=== PATIENT | male | born 1950 | race Caucasian/White ===

== ENCOUNTER 2021-07-04 10:19 | Inpatient (IN) | payer MEDICARE, MEDICAID ==
[~2021-07-04] VITALS: Ht 182.9 cm; Wt 50.3 kg
--- NOTE | 2021-07-04 10:25 | NUR ---
AMBROSIO EUGENE FROM [facility] FOR POOR ORAL INTAKE. THE PATIENT IS ALERT AND ORIENTED TO SELF. IN ROOM AIR AND DENIES SOB. RESPIRATION REGULAR AND UNLABORED. IN NO APPARENT DISTRESS. WILL CONTINUE TO MONITOR THE PATIENT.
[2021-07-04 11:00] LABS: BASOPHILS % (AUTO) 0.7 % (0.0-2.0); EOSINOPHILS % (AUTO) 0.9 % (0.0-6.0); HEMATOCRIT 42 % (39-51); HEMOGLOBIN 13.7 g/dL (13.5-17.5); LYMPHOCYTES # (AUTO) 1.4 K/uL (0.8-4.8); LYMPHOCYTES % (AUTO) 24.5 % (20.0-44.0); MEAN CORPUSCULAR HGB CONC 33 g/dl (31.0-36.0); MEAN CORPUSCULAR VOLUME 93 fL (80-96); MONOCYTES # (AUTO) 0.3 K/uL (0.1-1.30); MONOCYTES % (AUTO) 5.5 % (2.0-12.0); NEUTROPHILS # (AUTO) 3.8 K/uL (1.8-8.9); NEUTROPHILS % (AUTO) 68.4 % (43.0-81.0); PLATELET COUNT (AUTO) 210 K/uL (150-450); RED BLOOD CELL COUNT(AUTO) 4.46 MIL/uL (4.5-6.0); WHITE BLOOD COUNT (AUTO) 5.5 K/uL (4.3-11.0)
[2021-07-04 11:07] LABS: CALCIUM, SERUM 9.5 mg/dL (8.5-10.1); CARBON DIOXIDE 29 mmol/L (21-32); CHLORIDE 107 mmol/L (98-107); GLUCOSE 154 mg/dL (74-106); POTASSIUM 3.6 mmol/L (3.5-5.1); SODIUM SERUM 148 mmol/L (136-145); UREA NITROGEN, BLOOD 30 mg/dL (7-18)
[2021-07-04 11:11] LABS: ALANINE AMINOTRANSFERASE 13 U/L (12-78); ALBUMIN 3.6 g/dL (3.4-5.0); ALKALINE PHOSPHATASE 60 U/L (46-116); ASPARTATE AMINOTRANSFERASE 10 U/L (15-37); BILIRUBIN,DIRECT 0.1 mg/dL (0.0-0.2); BILIRUBIN,TOTAL 0.3 mg/dL (0.2-1.0); TOTAL PROTEIN, SERUM 7.1 g/dL (6.4-8.2)
[2021-07-04] MEDS ORDERED: IV NS 0.9% 1,000 ML BAG IV ONE ×2 (11:30→12:30)
--- NOTE | 2021-07-04 11:40 | NUR ---
MOVE SHEET SUBMITTED.
[2021-07-04 11:43] LABS: BILIRUBIN,URINE Negative (NEGATIVE); COLOR,URINE YELLOW (YELLOW); LEUKOCYTE ESTERASE ,URINE Moderate (NEGATIVE); NITRITE, URINE Positive (NEGATIVE); PH,URINE 6.5 (5.0-8.0); PROTEIN,URINE 30 mg/dl (NEGATIVE); UGLUCOSE Negative (NEGATIVE); UROBILINOGEN,URINE 0.2 EU/dL (0.2)
[2021-07-04 11:44] LABS: BACTERIA,URINE Few /HPF (None Seen); SQUAMOUS EPITHELIAL CELL,UR None Seen /HPF (None Seen)
[2021-07-04] MEDS ORDERED: DONE10TA11 GT (11:47)
[2021-07-04] MEDS ORDERED: VALP250S4 GT (11:47)
[2021-07-04] MEDS ORDERED: ASCO500C17 PO (11:47)
[2021-07-04] MEDS ORDERED: POLY17PO4 PO (11:47)
[2021-07-04] MEDS ORDERED: DEXT15DR6 OP (11:47)
[2021-07-04] MEDS ORDERED: MELA5TAB PO (11:47)
[2021-07-04] MEDS ORDERED: SERT50TA PO (11:47)
[2021-07-04] MEDS ORDERED: RISP1TAB97 PO (11:47)
--- NOTE | 2021-07-04 12:03 | NUR ---
COVID SWAB DONE AND SENT TO THE LAB
[2021-07-04] MEDS ORDERED: CEFTRIAXONE 1GM BAG (ER ONLY) 1 GM/50 ML PIGGYBACK IV ONE (12:30)
[2021-07-04] MEDS ORDERED: IV NS 0.9% 1,000 ML IV PRN (12:30)
[2021-07-04] MEDS ORDERED: Z GUARD REMEDY 2 OZ OINT TP PRN (12:30)
[2021-07-04] MEDS ORDERED: HOME MED MISCELLANEOUS XX SCH (12:30)
[2021-07-04] MEDS ORDERED: ONDANSETRON HCL/PF 4 MG/2 ML VIAL IVP PRN (12:30)
[2021-07-04] MEDS ORDERED: CEFTRIAXONE 1GM BAG (ER ONLY) 50 ML IV ONE (13:37)
--- NOTE | 2021-07-04 15:23 | NUR ---
PT ACCEPTED TO 119-1
--- NOTE | 2021-07-04 15:53 | NUR ---
REPORT GIVEN TO NURSE MORAIMA
--- NOTE | 2021-07-04 16:14 | NUR ---
THE PATIENT IS TRANSFERED TO [facility] IN STABLE CONDITION AND PER POLICY.
[2021-07-04] MEDS: ENSURE ENLIVE CHOC 237 ML CAN PO SCH (17:00)
[2021-07-04] MEDS: risperiDONE 1 MG TABLET PO SCH (17:29)
[2021-07-04] MEDS: ENOXAPARIN SODIUM 40 MG/0.4 ML DISP.SYRIN SQ SCH (17:31)
[2021-07-04 18:38] VITALS: BP 132/76
--- NOTE | 2021-07-04 19:30 | NUR ---
RN NOTE RECEIVED PATIENT IN BED. A/OX1. PATIENT IS CONFUSED. TOLERATING ROOM AIR. RESPIRATIONS ARE EVEN AND UNLABORED. NO S/S SOB NOTED. NO C/O PAIN AT THIS TIME. IN NO APPARENT DISTRESS. IV IN LAC#20 PATENT AND SALINE LOCKED AT THIS TIME TIME. PATIENT DOESNT WANT TO BE CONNECTED, GETTING UPSET THAT I WANT TO CONNECT HIM TO IVF. BED IS LOW AND LOCKED, HOB ELEVATED IN SEMI FOWLERS, SIDE RAILS UP X3, CALL LIGHT WITHIN REACH. WILL CONTINUE TO MONITOR THROUGHOUT SHIFT.
[2021-07-04 20:00] VITALS: BP 134/70
--- NOTE | 2021-07-04 20:00 | NUR ---
RN NOTE PROFESSOR OF HISTORY INFORMED ME THAT PATIENT REFUSED TO TAKE ALLOW HER TO CHECK O2 SATURATION DURING VITALS, I ALSO TRIED TO OBTAIN THE O2 SATURATION BUT PATIENT REFUSED.
[2021-07-04] MEDS: VALPROIC ACID 250 MG/5 ML UDC PO SCH ×3 (21:00→22:49)
[2021-07-04] MEDS: POLYVINYL ALCOHOL 15 ML BOTTLE EACHEYE SCH ×2 (21:00→21:46)
[2021-07-04] MEDS: DONEPEZIL 5 MG TABLET PO SCH ×3 (21:46→22:49)
--- NOTE | 2021-07-04 22:10 | NUR ---
RN NOTE PATIENT REFUSED TO TAKE MEDICATIONS DESPITE INFORMED HIM OF BENEFITS. AFTER ANOTHER ATTEMPT TO TRY TO TAKE MEDICATIONS HE DID TAKE SOME, HE REFUSED IVF TO BE ADMINISTERED AND ARTIFICIAL TEARS.
[2021-07-05 04:00] VITALS: BP 123/66
--- NOTE | 2021-07-05 04:00 | NUR ---
RN NOTE PATIENT ONCE AGAIN REFUSED TO ALLOW O2 SAT TO BE CHECKED. PATIENT IS STABLE ON ROOM AIR NO S/S SOB NOTED. NO RESPIRATORY DISTRESS.
[2021-07-05] MEDS: POLYVINYL ALCOHOL 15 ML BOTTLE EACHEYE SCH ×3 (05:00→21:00)
--- NOTE | 2021-07-05 05:28 | NUR ---
RN NOTE PATIENT REFUSED MEDICATION OF ARTIFICIAL TEARS AGAIN. INFORMED ON BENEFITS, CONTINUES TO REFUSE.
--- NOTE | 2021-07-05 06:23 | NUR ---
RN NOTE PER VP SOFTWARE ENGINEERING PATIENT REFUSED AM LABS AND WAS BECOMING COMBATIVE.
--- NOTE | 2021-07-05 06:52 | NUR ---
RN NOTE PATIENT RESTING IN BED. A/OX1. PATIENT IS VERY CONFUSED. TRIED COMING OUT OF HIS ROOM SEVERAL TIMES THROUGHOUT THE NIGHT. REMAINS TOLERATING ROOM AIR. DID NOT ALLOW US TO CHECK O2 SAT THROUGHOUT NIGHT BUT THERE WAS NO SIGNS OF RESP DISTRESS. PATIENT IS VERY NONCOMPLIANT WITH CARE AND THEN BECOMES COMBATIVE. IV IN LAC#20 , NO IVF RUNNING BECAUSE PATIENT REFUSED. BED IS LOW AND LOCKED, HOB ELEVATED IN SEMI FOWLERS, SIDE RAILS UP X3, CALL LIGHT WITHIN REACH. WILL ENDORSE TO ONCOMING SHIFT.
[2021-07-05 08:00] VITALS: BP 121/59
[2021-07-05] MEDS: ENSURE ENLIVE CHOC 237 ML CAN PO SCH ×2 (08:06→17:00)
[2021-07-05] MEDS: VALPROIC ACID 250 MG/5 ML UDC PO SCH ×2 (09:00→21:00)
[2021-07-05] MEDS: SERTRALINE HCL 50 MG TABLET PO SCH (09:00)
[2021-07-05] MEDS: risperiDONE 1 MG TABLET PO SCH ×2 (09:00→17:00)
[2021-07-05] MEDS: ASCORBIC ACID 500 MG TABLET PO SCH (09:00)
[2021-07-05] MEDS: PANTOPRAZOLE 40 MG VIAL IV SCH (10:10)
[2021-07-05] MEDS: ENOXAPARIN SODIUM 40 MG/0.4 ML DISP.SYRIN SQ SCH (10:12)
[2021-07-05] MEDS: CEFTRIAXONE 1 G in IV D5W 50 ML IV SCH ×2 (11:48→12:00)
[2021-07-05] MEDS: IV D5 LR 500 ML IV PRN ×2 (11:53→12:11)
[2021-07-05 12:00] VITALS: BP 103/63
[2021-07-05 16:00] VITALS: BP 104/56
--- NOTE | 2021-07-05 18:25 | NUR ---
Patient refused labwork at this time. Edgar Norman RN
--- NOTE | 2021-07-05 19:25 | NUR ---
MS/RN OPENING NOTE RECEIVED PATIENT RESTING IN BED. AWAKE, ALERT AND ORIENTED X 3. ABLE TO MAKE NEEDS KNOWN. DENIES PAIN AT THIS TIME. CONTINUES ON ROOM AIR WITH NO S/SX OF RESPIRATORY DISTRESS NOTED. IV ACCESS TO RIGHT AC #20G INTACT AND PATENT. PATIENT REFUSING IVF AT THIS TIME. PATIENT IS AMBULATORY WITH STEADY GAIT. CALL LIGHT WITHIN REACH. ASPIRATION, FALL AND SAFETY PRECAUTIONS MAINTAINED. WILL CONTINUE TO MONITOR.
[2021-07-05] MEDS: DONEPEZIL 5 MG TABLET PO SCH (21:04)
--- NOTE | 2021-07-05 21:04 | NUR ---
MS/RN NOTE PATIENT REFUSING ALL HS MEDICATIONS AT THIS TIME. DISCUSSED RISKS/BENEFITS OF REFUSING MEDICATION WITH PATIENT CONTINUING TO REFUSE X 3. WILL CONTINUE TO MONITOR.
[2021-07-06] MEDS: POLYVINYL ALCOHOL 15 ML BOTTLE EACHEYE SCH ×3 (05:00→21:00)
--- NOTE | 2021-07-06 06:00 | NUR ---
MS/RN NOTE PATIENT COMBATIVE, ATTEMPTING TO HIT STAFF. REFUSING CARE, PULLED OUT IV LINE. IV PLACED TO RIGHT AC#20G. NEW ORDER FROM DIRECTOR PARK MD ALARCON FOR BILATERAL SOFT WRIST RESTRAINTS AND HALDOL 5MG IM X 1. ORDER INPUTTED AND CARRIED OUT.
--- NOTE | 2021-07-06 06:20 | NUR ---
MS/RN CLOSING NOTE PATIENT CURRENTLY RESTING IN BED. ALERT AND ORIENTED X 1. NO PAIN AT THIS TIME. IV ACCESS TO RIGHT AC #20G INTACT AND PATENT. CONTINUES ON IVF. CONTINUES ON IV ABX. BILATERAL WRIST RESTRAINTS IN PLACE WITH GOOD CIRCULATION. CALL LIGHT WITHIN REACH. SAFETY CHECKS MADE. WILL ENDORSE PLAN OF CARE TO ONCOMING SHIFT.
[2021-07-06] MEDS ORDERED: HALOPERIDOL LACTATE INJ 5 MG/ML VIAL IM ONE (06:45)
--- NOTE | 2021-07-06 07:45 | NUR ---
RN OPENING NOTES RECEIVED PATIENT AWAKE IN BED. ALERT AND ORIENTED X1. NO SIGNS OR SYMPTOMS OF DISTRESS NOTED. NO SOB. RAC#20G PATENT AND INTACT. PATIENT IS REFUSED IV FLUIDS, MD AWARE. PATIENT WITH SOFT WRIST RESTRAINTS. SAFETY MEASURES IN PLACE WITH BED AT LOW POSITION, SIDE RAILS UP X2. CALL LIGHT IS WITHIN REACH. WILL CONTINUE TO MONITOR PATIENT THROUGHOUT SHIFT.
[2021-07-06 08:00] VITALS: BP 98/60
[2021-07-06] MEDS: ENSURE ENLIVE CHOC 237 ML CAN PO SCH ×2 (08:00→16:03)
[2021-07-06] MEDS: VALPROIC ACID 250 MG/5 ML UDC PO SCH ×3 (09:00→21:40)
[2021-07-06] MEDS: risperiDONE 1 MG TABLET PO SCH ×2 (09:00→09:27)
[2021-07-06] MEDS: ASCORBIC ACID 500 MG TABLET PO SCH (09:26)
[2021-07-06] MEDS: PANTOPRAZOLE 40 MG VIAL IV SCH (09:26)
[2021-07-06] MEDS: ENOXAPARIN SODIUM 40 MG/0.4 ML DISP.SYRIN SQ SCH (09:27)
[2021-07-06] MEDS: SERTRALINE HCL 50 MG TABLET PO SCH (09:27)
[2021-07-06] MEDS: CEFTRIAXONE 1 G in IV D5W 50 ML IV SCH (11:27)
[2021-07-06] MEDS: OLANZAPINE 2.5 MG TABLET PO SCH ×2 (14:28→21:40)
[2021-07-06] MEDS: MEROPENEM 1 G in IV NS 0.9% 100 ML IV SCH ×2 (15:44→23:35)
--- NOTE | 2021-07-06 17:00 | NUR ---
MS RN NOTES PATIENT CONSUMED ALMOST 100% OF LUNCH AND DINNER.
[2021-07-06 17:03] VITALS: BP 134/75
--- NOTE | 2021-07-06 18:25 | NUR ---
RN NOTES AFTER REMOVAL OF SOFT RESTRAINTS DURING MEALS, PATIENT WALKED TO RESTROOM SEVERAL TIMES AFTER INSTRUCTED NOT TO DO SO. PATIENT BECAME COMBATIVE AND AGGRESSIVE. SOFT RESTRAINTS WERE REAPPLIED, CHARGE NURSE RIZWAN MADE AWARE AND PATIENT WAS MOVED TO ROOM 113-1.
--- NOTE | 2021-07-06 18:29 | NUR ---
RN CLOSING NOTES PATIENT IS BED AWAKE IN BED, RESTING COMFORTABLY. ALERT AND ORIENTED X1. NO SIGNS OR SYMPTOMS OF DISTRESS NOTED. NO SOB. RAC#20G PATENT AND INTACT RUNNING D5 LR @75MLS/HR. IV ABX ADMINISTERED. SAFETY MEASURES IN PLACE WITH BED AT LOW POSITION, SIDE RAILS UP X2. CALL LIGHT IS WITHIN REACH. WILL ENDORSE CONTINUITY OF CARE TO ONCOMING SHIFT.
--- NOTE | 2021-07-06 19:30 | NUR ---
RN NOTE PATIENT RESTING IN BED. A/OX1-2. TOLERATING ROOM AIR. NO RESP DISTRESS. NO PAIN. NO DISTRESS. IV ACCESS IN RFA RUNNING D5LR@75. BILATERAL SOFT WRIST RESTRAINTS BED IS LOW AND LOCKED, HOB ELEVATED IN SEMI FOWLERS, SIDE RAILS UP X2, CALL LIGHT WITHIN REACH. ENDORSED TO NEXT SHIFT.
[2021-07-06 20:00] VITALS: BP 99/69
[2021-07-06 21:26] LABS: BASOPHILS # (AUTO) 0.1 K/uL (0.0-0.2); BASOPHILS % (AUTO) 0.9 % (0.0-2.0); EOSINOPHILS % (AUTO) 0.6 % (0.0-6.0); HEMATOCRIT 37 % (39-51); HEMOGLOBIN 12.4 g/dL (13.5-17.5); LYMPHOCYTES % (AUTO) 18.6 % (20.0-44.0); MEAN CORPUSCULAR HGB CONC 34 g/dl (31.0-36.0); MEAN CORPUSCULAR VOLUME 92 fL (80-96); MONOCYTES # (AUTO) 0.6 K/uL (0.1-1.30); NEUTROPHILS # (AUTO) 3.9 K/uL (1.8-8.9); NEUTROPHILS % (AUTO) 69.9 % (43.0-81.0); PLATELET COUNT (AUTO) 180 K/uL (150-450); RED BLOOD CELL COUNT(AUTO) 4.02 MIL/uL (4.5-6.0); WHITE BLOOD COUNT (AUTO) 5.6 K/uL (4.3-11.0)
[2021-07-06 21:38] LABS: POTASSIUM 4.4 mmol/L (3.5-5.1)
[2021-07-06] MEDS: MIRTAZAPINE 15 MG TABLET PO SCH (21:40)
[2021-07-06] MEDS: DONEPEZIL 5 MG TABLET PO SCH (21:40)
[2021-07-06] MEDS: IV D5 LR 500 ML IV PRN (21:43)
[2021-07-07] VITALS: BP 123/65
[2021-07-07 04:00] VITALS: BP 112/60
[2021-07-07] MEDS: POLYVINYL ALCOHOL 15 ML BOTTLE EACHEYE SCH ×3 (05:00→21:00)
[2021-07-07] MEDS: PANTOPRAZOLE 40 MG TABLET.DR PO SCH (07:30)
[2021-07-07 07:45] LABS: BASOPHILS % (AUTO) 0.3 % (0.0-2.0); EOSINOPHILS % (AUTO) 1.4 % (0.0-6.0); HEMATOCRIT 38 % (39-51); LYMPHOCYTES # (AUTO) 1.3 K/uL (0.8-4.8); LYMPHOCYTES % (AUTO) 27.3 % (20.0-44.0); MEAN CORPUSCULAR HGB CONC 34 g/dl (31.0-36.0); MEAN CORPUSCULAR VOLUME 92 fL (80-96); MONOCYTES # (AUTO) 0.5 K/uL (0.1-1.30); MONOCYTES % (AUTO) 9.3 % (2.0-12.0); NEUTROPHILS % (AUTO) 61.7 % (43.0-81.0); PLATELET COUNT (AUTO) 167 K/uL (150-450); RED BLOOD CELL COUNT(AUTO) 4.17 MIL/uL (4.5-6.0); WHITE BLOOD COUNT (AUTO) 4.9 K/uL (4.3-11.0)
[2021-07-07] MEDS: ENSURE ENLIVE CHOC 237 ML CAN PO SCH ×2 (08:00→16:08)
[2021-07-07 08:31] LABS: CALCIUM, SERUM 9.1 mg/dL (8.5-10.1); POTASSIUM 3.6 mmol/L (3.5-5.1)
[2021-07-07] MEDS: OLANZAPINE 2.5 MG TABLET PO SCH ×2 (09:00→21:00)
[2021-07-07] MEDS: ASCORBIC ACID 500 MG TABLET PO SCH (09:00)
[2021-07-07] MEDS: VALPROIC ACID 250 MG/5 ML UDC PO SCH ×2 (09:00→21:00)
[2021-07-07] MEDS: ENOXAPARIN SODIUM 40 MG/0.4 ML DISP.SYRIN SQ SCH (09:12)
[2021-07-07] MEDS: MEROPENEM 1 G in IV NS 0.9% 100 ML IV SCH ×3 (09:13→23:54)
[2021-07-07] MEDS: IV D5 LR 500 ML IV PRN (15:18)
--- NOTE | 2021-07-07 18:30 | NUR ---
MS RN CLOSING NOTES PATIENT CURRENTLY LYING IN BED, AWAKE. A/O X1. REPEATEDLY YELLS "SAVE MY LIFE!". STABLE ON ROOM AIR - NO SOB NOTED. NO DISTRESS/DISCOMFORT NOTED. ON BILATERAL SOFT WRIST RESTRAINTS - PATIENT REPEATEDLY TRIES TO PULL OUT IV LINE. IV ACCESS TO RIGHT AC#20G - PATENT AND INTACT - RUNNING D5 LR @75ML/HR. SAFETY MEASURES IMPLEMENTED. CALL LIGHT WITHIN REACH. WILL ENDORSE TO NURSE CHEMICAL DEPENDENCY NURSE FOR CUBA.
--- NOTE | 2021-07-07 19:45 | NUR ---
RN NOTE PATIENT ALERT AND ORIENTED X1-2. ON ROOM AIR, NO SHORTNESS OF BREATH NOTED. RESPIRATIONS EVEN AND UNLABORED. WITH BILATERAL SOFT WRIST RESTRAINTS, SKIN AND CIRCULATION CHECKED. NO SIGNS OF SKIN BREAKDOWN. PATIENT IS CURRENTLY NPO FOR POSSIBLE PEG PLACEMENT IN AM. IV ACCESS ON RIGHT AC # 20 WITH D5LR @ 75ML/HR, NO SIGNS OF INFILTRATION. BED LOCKED AND IN LOWEST POSITION. CALL LIGHT WITHIN REACH. ALL NEEDS ANTICIPATED.
[2021-07-07] MEDS: DONEPEZIL 5 MG TABLET PO SCH (21:00)
[2021-07-07] MEDS: MIRTAZAPINE 15 MG TABLET PO SCH (21:00)
[2021-07-08] MEDS: POLYVINYL ALCOHOL 15 ML BOTTLE EACHEYE SCH ×3 (04:51→21:00)
[2021-07-08] MEDS: IV D5 LR 500 ML IV PRN (06:23)
--- NOTE | 2021-07-08 06:51 | NUR ---
RN NOTE PATIENT ALERT AND ORIENTED X1-2. ON ROOM AIR O2 SAT 95% WITH BILATERAL SOFT WRIST RESTRAINTS, SKIN AND CIRCULATION CHECKED. NO SIGNS OF SKIN BREAKDOWN. PATIENT IS CURRENTLY NPO FOR POSSIBLE PEG PLACEMENT TODAY. IV ACCESS ON RIGHT AC # 20 WITH D5LR @ 75ML/HR, NO SIGNS OF INFILTRATION. BED LOCKED AND IN LOWEST POSITION. CALL LIGHT WITHIN REACH. WILL ENDORSE TO AM SHIFT.
[2021-07-08] MEDS: PANTOPRAZOLE 40 MG TABLET.DR PO SCH (07:30)
[2021-07-08] MEDS: ENSURE ENLIVE CHOC 237 ML CAN PO SCH ×2 (08:00→16:36)
--- NOTE | 2021-07-08 08:08 | NUR ---
MS RN OPENING NOTE PATIENT IS IN BED RESTING, PATIENT IS IN NO ACUTE DISTRESS. PATIENT IS ON ROOM AIR TOLERATING WELL. SAFETY PRECAUTIONS ARE ON, BED IS LOCKED IN THE LOWEST POSITION WITH SIDE RAILS UP, CALL LIGHT WITHIN REACH, WILL CONTINUE TO MONITOR CLOSELY.
--- NOTE | 2021-07-08 08:28 | NUR ---
MS RN NOTE PATIENTS OXYGEN LEVEL WAS 86%, PLACED PATIENT ON THE OXYGEN ON NC ON 4L, PATIENT SATURATING WENT UP YO 100%, PATIENT HR IS 45, PLACED PATIENT ON THE TELE MONITOR TO CONTINUE TO MONITOR CLOSELY.
[2021-07-08] MEDS: VALPROIC ACID 250 MG/5 ML UDC PO SCH ×2 (09:00→21:09)
[2021-07-08] MEDS: OLANZAPINE 2.5 MG TABLET PO SCH ×2 (09:00→21:09)
[2021-07-08] MEDS: ENOXAPARIN SODIUM 40 MG/0.4 ML DISP.SYRIN SQ SCH (09:00)
[2021-07-08] MEDS: ASCORBIC ACID 500 MG TABLET PO SCH (09:00)
[2021-07-08] MEDS: MEROPENEM 1 G in IV NS 0.9% 100 ML IV SCH ×2 (09:51→16:35)
--- NOTE | 2021-07-08 09:53 | NUR ---
MS RN NOTE PATIENT IS NOT COMPLIANT WITH MEDICATIONS, REFUSED ALL OF THEM, DISCUSSED RISK AND BENEFITS, PATIENT KEPT ON REFUSING.
--- NOTE | 2021-07-08 18:54 | NUR ---
MS RN CLOSING NOTE PATIENT IS IN BED RESTING, PATIENT IS IN NO ACUTE DISTRESS. PATIENT IS ON ROOM AIR TOLERATING WELL. PATIENT HAS G-TUBE PLACED. SAFETY PRECAUTIONS ARE ON, BED IS LOCKED IN THE LOWEST POSITION WITH SIDE RAILS UP, CALL LIGHT WITHIN REACH, ENDORSE PATIENT TO TEMPLE MARKER NURSE FOR CUBA.
--- NOTE | 2021-07-08 19:35 | NUR ---
RN NOTE PT RECEIVED IN BED. PT IS ON 4L OF O2 VIA NC SHOWING NO SIGNS OF RESP DISTRESS. A&OX1. PT IS ON TELE MONITOR WITH HR IN LOW 40S. BILATERAL WRIST RESTRAINTS NOTED. WILL CONTINUE TO ASSESS. PT HAS RIGHT AC #20, FLUSHED PATENT, AND INTACT WITH NO INFILTRATION. ALL SAFETY MEASURES IMPLEMENTED. CALL LIGHT WITHIN REACH. BED ALARM ON. CALL LIGHT WITHIN REACH. WILL CONTINUE TO MONITOR THROUGHOUT THE SHIFT.
[2021-07-08] MEDS: MIRTAZAPINE 15 MG TABLET PO SCH (21:09)
[2021-07-08] MEDS: DONEPEZIL 5 MG TABLET PO SCH (21:09)
[2021-07-09] MEDS: MEROPENEM 1 G in IV NS 0.9% 100 ML IV SCH ×2 (00:49→08:34)
[2021-07-09] MEDS: POLYVINYL ALCOHOL 15 ML BOTTLE EACHEYE SCH ×3 (05:00→21:37)
--- NOTE | 2021-07-09 07:10 | NUR ---
RN NOTE NO CHANGES IN PT CONDITION DURING SHIFT. PT IS ON 4L OF O2 VIA NC SHOWING NO SIGNS OF RESP DISTRESS. A&OX1. PT IS ON TELE MONITOR WITH HR IN LOW 40S. PT HAS RIGHT AC #20, FLUSHED PATENT, AND INTACT WITH NO INFILTRATION. ALL MEDS GIVEN ORDERED. PT KEPT CLEAN AND COMFORTABLE. ALL SAFETY MEASURES IMPLEMENTED. CALL LIGHT WITHIN REACH. BED ALARM ON. CALL LIGHT WITHIN REACH. ENDORSED TO MORNING SHIFT RN FOR CUBA.
[2021-07-09] MEDS: ENSURE ENLIVE CHOC 237 ML CAN PO SCH (08:00)
--- NOTE | 2021-07-09 08:00 | NUR ---
CASKET INSPECTOR NOTE ALERT WITH CONFUSUION . PT IS ON 4L OF O2 VIA NC SHOWING NO SIGNS OF RESP DISTRESS. A&OX1. PT IS ON TELE MONITOR WITH HR IN LOW 47 S. PT HAS RIGHT AC #20, FLUSHED PATENT BUT RED IN COLOR, AND INTACT ALL MEDS GIVEN ORDERED. PT KEPT CLEAN AND COMFORTABLE. ALL SAFETY MEASURES IMPLEMENTED. CALL LIGHT WITHIN REACH. BED ALARM ON. CALL LIGHT WITHIN REACH. UNABLE TO INSERT NEW HL PATIENT STORNGELY REFUSED
[2021-07-09] MEDS: ASCORBIC ACID 500 MG TABLET PO SCH (08:34)
[2021-07-09] MEDS: VALPROIC ACID 250 MG/5 ML UDC PO SCH ×2 (08:34→21:36)
[2021-07-09] MEDS: PANTOPRAZOLE 40 MG TABLET.DR PO SCH (08:34)
[2021-07-09] MEDS: OLANZAPINE 2.5 MG TABLET PO SCH ×2 (08:34→21:36)
[2021-07-09] MEDS: ENOXAPARIN SODIUM 40 MG/0.4 ML DISP.SYRIN SQ SCH (08:35)
[2021-07-09] MEDS: IV D5 LR 500 ML IV PRN (08:45)
[2021-07-09] MEDS ORDERED: JEVITY 1.2 CAL 1,000 ML BOTTLE GT PRN (09:00)
[2021-07-09 11:00] VITALS: BP 112/60
--- NOTE | 2021-07-09 11:00 | NUR ---
INDUSTRIAL MAINTENANCE REPAIRER NOTE CALLED TO ZORAN LAU POKER MACHINE ATTENDANT NOTIFIED THAT PATINT STRANGELY REFUSED TO INSERT IV HL OK TO HOLD IVF AND WILL CHANGE IV ATB WILL F\U
[2021-07-09 12:00] VITALS: BP 93/53
[2021-07-09] MEDS: NITROFURANTOIN/NITROFURAN MONOHYDRATE 100 MG CAPSULE PO SCH ×2 (14:15→21:36)
--- NOTE | 2021-07-09 15:15 | NUR ---
tele r n note no residual noted tube feeding increased at 30 ml per hour , will cont to monitor Addendum: 07/09/21 at 1520 by KECIA SANTORO RN Tre sequeira vice squad police officer at bedside aware that patient refused lab work
[2021-07-09 16:00] VITALS: BP 97/54
--- NOTE | 2021-07-09 17:20 | NUR ---
director television news note unable to remove hl on rt ac,patient noncompliant with tx , patent strongly refusing , become agited and very restless become hitting nurses
--- NOTE | 2021-07-09 18:32 | NUR ---
PHARMACOGNOSIST NOTE: 71 YEAR OLD MALE ADMITTED VIA BED FROM [facility]. PT IS A+OX1, CONFUSED, DISORIENTED. PT IS COMBATIVE WITH SOFT RESTRAINTS IN PLACE. ATTEMPTED TO BITE NURSE WHEN BEING PLACED ON TELEMETRY AND ATTEMPTING TO DISCONTINUE INFILTRATED SL TO RAC. PT UNABLE TO BE REDIRECTED. YELLING. RAMBLING AND GARBLED SPEECH. PT WITH JEVITY INFUSING AT 30 CC/HOUR. BED PLACED IN LOW AND LOCKED POSITION WITH SIDE RAILS UP X 2. WILL CONT TO MONITOR.
--- NOTE | 2021-07-09 18:32 | NUR ---
telecommunications sales representative note transferred to room 314 with stable condition, by acls protocol by bed , report given to alicia sequeira
--- NOTE | 2021-07-09 19:20 | NUR ---
INTERTYPE OPERATOR OPENING NOTES: RECEIVED PATIENT IN BED, AWAKE, CONFUSED. NO S/S OF DISTRESS NOTED. NOT IN PAIN. CALL LIGHT WITHIN REACH. BED ALARM ON. BED IN LOWEST AND LOCKED POSITION. HOB ELEVATED AT ALL TIMES. WITH TF JEVITY AT 30ML/HOUR. WITH BILATERAL SOFT WRISTS RESTRAINTS, CHECKED SKIN AND CIRCULATIONS, WNL. TELE MONITOR PLACED.
[2021-07-09 20:00] VITALS: BP 139/60
[2021-07-09] MEDS: MIRTAZAPINE 15 MG TABLET PO SCH (21:36)
[2021-07-09] MEDS: DONEPEZIL 5 MG TABLET PO SCH (21:36)
--- NOTE | 2021-07-09 21:53 | NUR ---
GT RESIDUAL 75ML, WILL INFORM .
[2021-07-10] VITALS: BP 115/65
--- NOTE | 2021-07-10 00:25 | NUR ---
AT 2346 CHECKED GT RESIDUAL= NONE. TF RESUMED AT 30ML/HOUR. HOB ELEVATED AT ALL TIMES.
[2021-07-10 04:00] VITALS: BP 126/75
[2021-07-10] MEDS: POLYVINYL ALCOHOL 15 ML BOTTLE EACHEYE SCH ×2 (05:06→13:11)
--- NOTE | 2021-07-10 06:27 | NUR ---
ELECTRONEURODIAGNOSTIC TECHNOLOGIST CLOSING NOTES: PATIENT IN BED, AWAKE, CONFUSED. NO S/S OF DISTRESS NOTED. NO COMPLAIN OF PAIN. CALL LIGHT WITHIN REACH. BED ALARM ON. BED IN LOWEST AND LOCKED POSITION. HOB ELEVATED AT ALL TIMES. WITH GT TF JEVITY AT 30ML/HOUR RUNNING. WITH BILATERAL SOFT WRISTS RESTRAINTS ON, SKIN AND CIRCULATIONS WNL.
[2021-07-10 06:41] LABS: BASOPHILS % (AUTO) 0.3 % (0.0-2.0); EOSINOPHILS % (AUTO) 1.6 % (0.0-6.0); HEMATOCRIT 39 % (39-51); HEMOGLOBIN 13.2 g/dL (13.5-17.5); LYMPHOCYTES # (AUTO) 1.4 K/uL (0.8-4.8); LYMPHOCYTES % (AUTO) 22.9 % (20.0-44.0); MEAN CORPUSCULAR HGB CONC 34 g/dl (31.0-36.0); MEAN CORPUSCULAR VOLUME 91 fL (80-96); MONOCYTES # (AUTO) 0.4 K/uL (0.1-1.30); MONOCYTES % (AUTO) 5.9 % (2.0-12.0); NEUTROPHILS # (AUTO) 4.1 K/uL (1.8-8.9); NEUTROPHILS % (AUTO) 69.3 % (43.0-81.0); PLATELET COUNT (AUTO) 202 K/uL (150-450); RED BLOOD CELL COUNT(AUTO) 4.29 MIL/uL (4.5-6.0)
[2021-07-10 07:18] LABS: CALCIUM, SERUM 9.6 mg/dL (8.5-10.1); CREATININE 0.9 mg/dL (0.6-1.3); MAGNESIUM 2.5 mg/dL (1.8-2.4); POTASSIUM 4.8 mmol/L (3.5-5.1)
--- NOTE | 2021-07-10 07:37 | NUR ---
TELE/RN OPENING NOTES RECEIVED PATIENT IN BED AWAKE AND CONFUSED. PATIENT IS ON ROOM AIR SATURATING WELL. NO SIGN AND SYMPTOM OF PAIN NOTED AT THIS TIME. WILL CONTINUE TO MONITOR.
[2021-07-10] MEDS: PANTOPRAZOLE 40 MG TABLET.DR PO SCH (07:49)
[2021-07-10] MEDS: NITROFURANTOIN/NITROFURAN MONOHYDRATE 100 MG CAPSULE PO SCH (08:40)
[2021-07-10] MEDS: OLANZAPINE 2.5 MG TABLET PO SCH (08:40)
[2021-07-10] MEDS: ASCORBIC ACID 500 MG TABLET PO SCH (08:41)
[2021-07-10] MEDS: VALPROIC ACID 250 MG/5 ML UDC PO SCH (08:41)
[2021-07-10] MEDS: ENOXAPARIN SODIUM 40 MG/0.4 ML DISP.SYRIN SQ SCH (08:41)
--- NOTE | 2021-07-10 18:12 | NUR ---
RN NOTES PATIENT IS ALERT AND ORIENTED TO SELF AND PATIENT WAS CONFUSED. PATIENT IS ON ROOM AIR SATURATION 99%. PATIENT IN NO APPARENT RESPIRATORY DISTRESS NOTED. NO SIGN AND SYMPTOM OF PAIN NOTED AT THIS TIME. SEEN AND EXAMINED BY MD WITH ORDERS MADE AND CARRIED OUT. ALL DUE MEDICATIONS WAS GIVEN. DISCHARGE INSTRUCTIONS WAS GIVEN TO HERNANDEZ LAU AT [facility]. PATIENT LEFT THE HOSPITAL IN MEDICALLY STABLE CONDITION, SOCIAL MEDIA PROJECT MANAGER BY 2 EMT VIA AMBULANCE.
[2021-07-11] MEDS ORDERED: LACT-209 GT (09:12)
[2021-07-11] MEDS ORDERED: NITR100C6 GT (09:12)
[2021-07-11] MEDS ORDERED: MIRT-121 GT (09:12)
[2021-07-11] MEDS ORDERED: ACET325T53 GT (09:12)
[2021-07-11] MEDS ORDERED: MAGN400O6 GT (09:12)
[2021-07-11] MEDS ORDERED: OLAN2.5T3 GT (09:12)
== END 2021-07-10 17:45 | DRG 640 ==
LOC: ER 11:17 → MEDSG1 15:43 → TELE1 07-08 20:05 → MED 07-09 18:23 → TELE 07-09 18:37
PROVIDERS: ADMIT Nurse Practitioner Acute Care; ATTEND Nurse Practitioner Family
PROC: 0DH63UZ Insertion of Feeding Device into Stomach, Percutaneous Approach (ICD-10-PCS; principal; 2021-07-08)
DX: R62.7 Adult failure to thrive (principal); E43 Unspecified severe protein-calorie malnutrition; J15.0 Pneumonia due to Klebsiella pneumoniae; N39.0 Urinary tract infection, site not specified; G93.40 Encephalopathy, unspecified; E87.2 Acidosis; Z68.1 Body mass index [BMI] 19.9 or less, adult; E87.0 Hyperosmolality and hypernatremia; R64 Cachexia; F02.81 Dementia in other diseases classified elsewhere, unspecified severity, with behavioral disturbance; G20 Parkinson's disease; E86.1 Hypovolemia; K29.70 Gastritis, unspecified, without bleeding; M15.9 Polyosteoarthritis, unspecified; R13.10 Dysphagia, unspecified; F29 Unspecified psychosis not due to a substance or known physiological condition; F25.1 Schizoaffective disorder, depressive type
CPT/HCPCS: 36415; 43246; 71045-TC; 80048-TC; 80076-TC; 81001; 83605-TC; 83735-TC; 84484-TC; 85025-TC; 85730-TC; 87040-TC; 87081-TC; 87086-TC; 87186-TC; C9113; G0378; J0690; J0696; J1630; J1650; J2185; J2704; J3490; J7030; J7060; U0003

== ENCOUNTER 2021-07-11 07:46 | Inpatient (IN) | payer MEDICARE, MEDICAID ==
[~2021-07-11] VITALS: Ht 182.9 cm; Wt 53.5 kg
[~2021-07-11 07:46] MED LIST: ASCO500C17 PO; DEXT15DR6 OP; DONE10TA11 GT; MELA5TAB PO; POLY17PO4 PO; VALP250S4 GT
--- NOTE | 2021-07-11 08:05 | NUR ---
THE PATIENT IS BIB PA FROM [facility],G TUBE DISLODGED AT 10 PM LAST NIGHT. ABDOMEN SOFT AND NON-DISTENDED. IN ROOM AIR AND DENIES SOB. RESPIRATION REGULAR AND UNLABORED. THE PATIENT IS IN NO APPARENT DISTRESS. WILL CONTINUE TO MONITOR THE PATIENT.
--- NOTE | 2021-07-11 08:46 | NUR ---
COVID SWAB COLLECTED AND SENT TO LAB.
[2021-07-11 08:47] LABS: BASOPHILS % (AUTO) 0.5 % (0.0-2.0); EOSINOPHILS % (AUTO) 1.2 % (0.0-6.0); HEMATOCRIT 41 % (39-51); HEMOGLOBIN 13.6 g/dL (13.5-17.5); LYMPHOCYTES # (AUTO) 1.5 K/uL (0.8-4.8); LYMPHOCYTES % (AUTO) 21.7 % (20.0-44.0); MEAN CORPUSCULAR HGB CONC 33 g/dl (31.0-36.0); MEAN CORPUSCULAR VOLUME 91 fL (80-96); MONOCYTES # (AUTO) 0.4 K/uL (0.1-1.30); MONOCYTES % (AUTO) 5.7 % (2.0-12.0); NEUTROPHILS # (AUTO) 4.9 K/uL (1.8-8.9); NEUTROPHILS % (AUTO) 70.9 % (43.0-81.0); PLATELET COUNT (AUTO) 219 K/uL (150-450); RED BLOOD CELL COUNT(AUTO) 4.47 MIL/uL (4.5-6.0); WHITE BLOOD COUNT (AUTO) 6.9 K/uL (4.3-11.0)
[2021-07-11 09:09] LABS: CALCIUM, SERUM 9.5 mg/dL (8.5-10.1); CREATININE 0.9 mg/dL (0.6-1.3); POTASSIUM 4.5 mmol/L (3.5-5.1)
[2021-07-11] MEDS ORDERED: ACET325T53 GT (09:12)
[2021-07-11] MEDS ORDERED: LACT-209 GT (09:12)
[2021-07-11] MEDS ORDERED: MIRT-121 GT (09:12)
[2021-07-11] MEDS ORDERED: NITR100C6 GT (09:12)
[2021-07-11] MEDS ORDERED: MAGN400O6 GT (09:12)
[2021-07-11] MEDS ORDERED: OLAN2.5T3 GT (09:12)
--- NOTE | 2021-07-11 09:32 | NUR ---
PAGED [facility].
--- NOTE | 2021-07-11 10:40 | NUR ---
HOUSE SUP CALLED,NO BED AT THIS TIME
[2021-07-11] MEDS ORDERED: ONDANSETRON HCL/PF 4 MG/2 ML VIAL IVP PRN (11:00)
[2021-07-11] MEDS ORDERED: Z GUARD REMEDY 2 OZ OINT TP PRN (11:00)
[2021-07-11] MEDS ORDERED: ACETAMINOPHEN 650 MG/SUPP.RECT RC PRN (11:00)
[2021-07-11] MEDS: VALPROATE 250 MG in IV D5W 100 ML IV SCH ×2 (11:34→21:23)
[2021-07-11] MEDS: IV D5/ 0.9% NACL 1,000 ML IV PRN (11:35)
--- NOTE | 2021-07-11 16:15 | NUR ---
NO AVAILABLE BED YET PER HOUSE SUP
--- NOTE | 2021-07-11 21:50 | NUR ---
M/S 108
--- NOTE | 2021-07-11 22:02 | NUR ---
REPORT GIVEN JUDI CHESTER
[2021-07-12] VITALS: BP 125/96
--- NOTE | 2021-07-12 03:29 | NUR ---
RN notes Admitted a 71 year male from ER with dislodged Gtube and was not replaced at once. The hole closed and ER was not able to insert another GTube. On a stretcher accompanied by 2 staff in stable condition. Able to verbally communicate needs. Alert with confusion, combative, ambulatory and hard of hearing. On room air way, tolerating well. Vital signs WNL. No comlaint of pain or discomfort. NPO, needs attended. Kept clean and dry. Will endorse to next shift for continuity of care.
[2021-07-12] MEDS: IV D5/ 0.9% NACL 1,000 ML IV PRN ×3 (03:49→21:32)
[2021-07-12 04:00] VITALS: BP 118/89
--- NOTE | 2021-07-12 08:00 | NUR ---
m/s engineering administrator: notes pt refusing to be examined, stated, "i don't want to get bother, i want to sleep." also resistive to care and skin assessment. reality orientation provided prn. will continue to monitor.
[2021-07-12] MEDS: VALPROATE 250 MG in IV D5W 100 ML IV SCH ×2 (09:03→21:31)
--- NOTE | 2021-07-12 09:30 | NUR ---
m/s rac specialist: notes per feed crusher, pt refused blood draw. pt still refusing to be disturbed. reality orientation provided prn. will continue to monitor.
--- NOTE | 2021-07-12 10:26 | NUR ---
m/s eyeglass maker: md visit seen by dr. dang with new orders. orders acknowledged.
--- NOTE | 2021-07-12 12:10 | NUR ---
m/s snowboarder: notes frank (o.r. nurse) called and informed me that dr. andrade wants to do the peg today. informed frank that pt has no family and pt unable to sign due to cognitive impairment. dr. dang notified and made aware that pt has no family and pt cannot sign the consent for peg placement and says he will put a note as stated. will continue to monitor.
--- NOTE | 2021-07-12 14:00 | NUR ---
m/s legal cashier: notes pt still resistive to care despite teaching and education provided. reality orientation provided prn. will continue to monitor.
--- NOTE | 2021-07-12 15:20 | NUR ---
m/s carbon brush maker: notes dr. dang put a addendum note okay to have peg placement.
--- NOTE | 2021-07-12 17:55 | NUR ---
pt refused blood draw since this morning. pt remains non-compliant.
[2021-07-12 20:00] VITALS: BP 100/58
[2021-07-13 04:00] VITALS: BP 97/60
--- NOTE | 2021-07-13 05:13 | NUR ---
RN notes Resting comfortably in bed with no distress noted, Breathing even and unlabored. Alert, awake and confused and disoriented. Ambulatory with assist. Verbally able to communicate needs. On room air, No complaint of pain or discomfort. Kept clean and dry.
--- NOTE | 2021-07-13 07:21 | NUR ---
RN notes Called [facility], spoke with Winsome nurse for Ike Colindres. Asked about patient's Responsible. According to the nurse, the patient is self responsible and has no other family in his face sheet. There is also no DPOA. She will call back regarding how they get consents for him. Endorsed to JUDI Sanders , to follow up.
--- NOTE | 2021-07-13 07:26 | NUR ---
RN NOTES CALLED NEEL WHITEHEAD AT [phone] TO INQUIRE ABOUT DPOA. PER STAFF, THERE IS NO DPOA BUT WILL TRY TO CHECK AGAIN.
--- NOTE | 2021-07-13 07:30 | NUR ---
MS RN NOTES PT IN BED, RESTING, REFUSING EVERYTHING, DOES NOT WANT TO BE BOTHERED. ALERT BUT CONFUSED. ON ROOM AIR SATTING 99%. NOT IN ANY DISTRESS. NO SOB. DENIES PAIN OR DISCOMFORT. WITH D5NS AT 75 ML/HR RUNNING ON LEFT AC. SITE CLEAR. NPO FOR PEG INSERTION TODAY, CALLED [facility] - [facility], NO DPOA, NO FAMILY. MD AWARE. CONSENT SIGNED BY 2 NURSE. SAFETY MEASURES IN PLACE. CALL LIGHT WITHIN REACH. WILL CONT TO MONITOR.
[2021-07-13 07:53] LABS: BASOPHILS # (AUTO) 0.1 K/uL (0.0-0.2); BASOPHILS % (AUTO) 0.9 % (0.0-2.0); EOSINOPHILS % (AUTO) 2.1 % (0.0-6.0); HEMATOCRIT 38 % (39-51); LYMPHOCYTES # (AUTO) 1.4 K/uL (0.8-4.8); LYMPHOCYTES % (AUTO) 23.1 % (20.0-44.0); MEAN CORPUSCULAR HGB CONC 34 g/dl (31.0-36.0); MEAN CORPUSCULAR VOLUME 92 fL (80-96); MONOCYTES # (AUTO) 0.3 K/uL (0.1-1.30); MONOCYTES % (AUTO) 5.3 % (2.0-12.0); NEUTROPHILS # (AUTO) 4.1 K/uL (1.8-8.9); NEUTROPHILS % (AUTO) 68.6 % (43.0-81.0); PLATELET COUNT (AUTO) 205 K/uL (150-450); RED BLOOD CELL COUNT(AUTO) 4.17 MIL/uL (4.5-6.0)
--- NOTE | 2021-07-13 07:57 | NUR ---
RN NOTES PATIENT REFUSE VITAL SIGN TAKEN.
[2021-07-13 08:20] LABS: ALBUMIN 3.1 g/dL (3.4-5.0); BILIRUBIN,TOTAL 0.5 mg/dL (0.2-1.0); CALCIUM, SERUM 9.2 mg/dL (8.5-10.1); CREATININE 0.9 mg/dL (0.6-1.3); MAGNESIUM 2.3 mg/dL (1.8-2.4); PHOSPHORUS 2.6 mg/dL (2.5-4.9); POTASSIUM 3.9 mmol/L (3.5-5.1); TOTAL PROTEIN, SERUM 6.5 g/dL (6.4-8.2)
[2021-07-13] MEDS: VALPROATE 250 MG in IV D5W 100 ML IV SCH ×2 (09:57→21:12)
[2021-07-13] MEDS: IV D5/ 0.9% NACL 1,000 ML IV PRN (10:09)
[2021-07-13 12:00] VITALS: BP 118/64
--- NOTE | 2021-07-13 13:45 | NUR ---
RN NOTES PATIENT PICKED UP FOR SCHEDULED GT PLACEMENT.
--- NOTE | 2021-07-13 15:25 | NUR ---
RN NOTES PATIENT BACK FROM SURGERY. S/P PEG TUBE PLACEMENT. EYES CLOSED. PATIENT PLACED ON ACUTE MEDICAL RESTRAINT DUE TO ATTEMPT OF PULLING G TUBE AND IV LINES.
[2021-07-13 15:30] VITALS: BP 130/81
[2021-07-13 16:00] VITALS: BP 141/80
--- NOTE | 2021-07-13 19:26 | NUR ---
MS RN NOTES PT IN BED, RESTING, REFUSING EVERYTHING, ALERT BUT CONFUSED. ON ROOM AIR SATTING 99%. NOT IN ANY DISTRESS. NO SOB. DENIES PAIN OR DISCOMFORT. WITH D5NS AT 75 ML/HR RUNNING ON LEFT AC. SITE CLEAR. STILL NPO. S/P PEG PLACEMENT TODAY BY DR. STREETER, ALL NEEDS MET. WAS PLACED ON ACUTE RESTRAINT DUE TO PULLING OF HIS LINES AND G TUBE. CHECKED AND RELEASED Q 2 HOURS FOR CIRCULATION. ABDOMINAL BINDER IN PLACE. SAFETY MEASURES IN PLACE. CALL LIGHT WITHIN REACH. WILL ENDORSE TO NEXT SHIFT FOR CUBA. PER DR. STREETER 1. CAN START FEEDING TOMORROW AM. 2. CAN USE GT FOR WATER AND MEDS 4 HOURS POST INSERTION. 3. EGD UNREMARKABLE
[2021-07-13 20:00] VITALS: BP_SYST 132; BP_SYST 143; BP_DIAS 84; BP_DIAS 93
[2021-07-14] VITALS: BP 128/83
[2021-07-14 04:00] VITALS: BP 129/62
[2021-07-14] MEDS ORDERED: JEVITY 1.2 CAL 1,000 ML BOTTLE GT PRN ×2 (05:00→05:30)
--- NOTE | 2021-07-14 06:50 | NUR ---
RN note Awake in bed watching TV. Alert with confusion. No distress noted. On room air tolerating well. No complaint of pain or discomfort. Had a slight temp at 20:00 99.9. Cooling measures provided. Reposition for comfort. Temp went down to 98.6 AT 04:00. No significant change of condition. Started Feeding at 04:00 at 30ml/hr and increased to 65ml/hr at 07:00. Peg tube patent and intact. Feeding well tolerated. On bilateral wrist restraints to prevent pulling out of replaced Peg Tube. Kept clean and dry. Will endorse to next shift for continuity of care.
--- NOTE | 2021-07-14 07:30 | NUR ---
MS RN AM NOTES PT IN BED, RESTING, REFUSING EVERYTHING, ALERT BUT CONFUSED. ON ROOM AIR SATTING 99%. NOT IN ANY DISTRESS. NO SOB. DENIES PAIN OR DISCOMFORT. WITH D5NS AT 75 ML/HR RUNNING ON LEFT AC. SITE CLEAR. NPO. S/P PEG PLACEMENT 07/13/[address] STRE[address]ER, CHECKED FOR PLACEMENT. O RESIDUAL.GT FEEDING RUNNING AT 60 ML/HR. WAS PLACED ON ACUTE RESTRAINT DUE TO PULLING OF HIS LINES AND G TUBE. CHECKED AND RELEASED Q 2 HOURS FOR CIRCULATION. ABDOMINAL BINDER IN PLACE. SAFETY MEASURES IN PLACE. CALL LIGHT WITHIN REACH. WILL CONTINUE TO MONITOR.
[2021-07-14 08:00] VITALS: BP 112/62
[2021-07-14 09:09] LABS: BASOPHILS # (AUTO) 0.1 K/uL (0.0-0.2); BASOPHILS % (AUTO) 0.9 % (0.0-2.0); EOSINOPHILS % (AUTO) 0.7 % (0.0-6.0); HEMATOCRIT 38 % (39-51); HEMOGLOBIN 12.7 g/dL (13.5-17.5); LYMPHOCYTES # (AUTO) 1.5 K/uL (0.8-4.8); LYMPHOCYTES % (AUTO) 23.1 % (20.0-44.0); MEAN CORPUSCULAR HGB CONC 34 g/dl (31.0-36.0); MEAN CORPUSCULAR VOLUME 90 fL (80-96); MONOCYTES # (AUTO) 0.4 K/uL (0.1-1.30); MONOCYTES % (AUTO) 5.9 % (2.0-12.0); NEUTROPHILS # (AUTO) 4.4 K/uL (1.8-8.9); NEUTROPHILS % (AUTO) 69.4 % (43.0-81.0); PLATELET COUNT (AUTO) 217 K/uL (150-450); RED BLOOD CELL COUNT(AUTO) 4.16 MIL/uL (4.5-6.0); WHITE BLOOD COUNT (AUTO) 6.3 K/uL (4.3-11.0)
[2021-07-14] MEDS: VALPROATE 250 MG in IV D5W 100 ML IV SCH (09:15)
--- NOTE | 2021-07-14 09:30 | NUR ---
RN NOTES DUE MEDS GIVEN.
[2021-07-14 09:51] LABS: ALBUMIN 2.9 g/dL (3.4-5.0); BILIRUBIN,TOTAL 0.6 mg/dL (0.2-1.0); CALCIUM, SERUM 9.1 mg/dL (8.5-10.1); CREATININE 0.8 mg/dL (0.6-1.3); MAGNESIUM 2.2 mg/dL (1.8-2.4); PHOSPHORUS 2.7 mg/dL (2.5-4.9); POTASSIUM 3.7 mmol/L (3.5-5.1); TOTAL PROTEIN, SERUM 6.4 g/dL (6.4-8.2)
--- NOTE | 2021-07-14 14:00 | NUR ---
RN NOTES REPORT GIVEN TO MIHIR COTA AT FACILITY.
--- NOTE | 2021-07-14 14:32 | NUR ---
MS RN AM NOTES PT IN BED, RESTING, REFUSING EVERYTHING, ALERT BUT CONFUSED. ON ROOM AIR SATTING 99%. NOT IN ANY DISTRESS. NO SOB. DENIES PAIN OR DISCOMFORT. WITH D5NS AT 75 ML/HR RUNNING ON LEFT AC. SITE CLEAR. NPO. S/P PEG PLACEMENT 07/13/[address] STRE[address]ER, CHECKED FOR PLACEMENT. O RESIDUAL.GT FEEDING RUNNING AT 60 ML/HR. WAS PLACED ON ACUTE RESTRAINT DUE TO PULLING OF HIS LINES AND G TUBE. CHECKED AND RELEASED Q 2 HOURS FOR CIRCULATION. ABDOMINAL BINDER IN PLACE. SAFETY MEASURES IN PLACE. CALL LIGHT WITHIN REACH. WILL CONTINUE TO MONITOR. Addendum: 07/14/21 at 1440 by BENITEZ EGAN RN DISREGARD THIS DOCUMENTATION DUPLICATE.
--- NOTE | 2021-07-14 15:38 | NUR ---
ASH KIER BOILER NOTES PATIENT DISCHARGED TO [facility] PER MD IN [place] CONDITION. S/P PEG PLACEMENT BY DR. STREETER ON 07/13/21. PATENT INTACT WITH ABDOMINAL BINDER IN PLACE. PATIENT TO FOLLOW UP WITH PCP IN 1-2 WEEKS OR PER FACILITY PROTOCOL. PATIENT IS COMBATIVE AND UNABLE TO TAKE PHOTOS OF SKIN ISSUE. RESTRAINT RELEASED AND CHECKED FOR CIRCULATION. IV ACCESS ON LEFT AC REMOVED. NO BLEEDING, APPLIED PRESSURE AND DRESSING. NO BELONGINGS. ALL PAPERWORKS SIGNED. PATIENT PICKED UP BY 2 AMBULANCE PERSONNEL AND WILL BE TRANSPORTED TO FACILITY. REPORT GIVEN TO MIHIR COTA AT FACILITY STAFF EARLIER.
[2021-07-14] MEDS ORDERED: VALPROIC ACID 250 MG/5 ML UDC GT SCH (21:00)
== END 2021-07-14 15:47 | DRG 393 ==
LOC: ER 07:52 → TRANSITION 11:55 → MEDSG1 22:02
PROC: 0DH63UZ Insertion of Feeding Device into Stomach, Percutaneous Approach (ICD-10-PCS; principal; 2021-07-13)
DX: Z43.1 Encounter for attention to gastrostomy (principal); E43 Unspecified severe protein-calorie malnutrition; F02.81 Dementia in other diseases classified elsewhere, unspecified severity, with behavioral disturbance; E87.0 Hyperosmolality and hypernatremia; G93.40 Encephalopathy, unspecified; R64 Cachexia; Z68.1 Body mass index [BMI] 19.9 or less, adult; G20 Parkinson's disease; Z20.822 Contact with and (suspected) exposure to COVID-19; F32.9 Major depressive disorder, single episode, unspecified; F20.9 Schizophrenia, unspecified; M62.50 Muscle wasting and atrophy, not elsewhere classified, unspecified site
CPT/HCPCS: 36415; 43246; 71045-TC; 80048-TC; 80053-TC; 80164-TC; 83735-TC; 84100-TC; 85025-TC; 85610-TC; 86850-TC; 87081-TC; C9803; G0378; J0690; J2704; J3490; J7042; J7060; U0003

== ENCOUNTER 2021-07-15 15:46 | Emergency (ER) | payer MEDICARE, MEDICAID ==
[~2021-07-15] VITALS: Ht 182.9 cm; Wt 54.9 kg
[~2021-07-15 15:46] MED LIST changes: +ACET325T53 GT; +LACT-209 GT; +MAGN400O6 GT; -MELA5TAB PO; +MIRT-121 GT; +NITR100C6 GT; +OLAN2.5T3 GT; -POLY17PO4 PO
--- NOTE | 2021-07-15 16:00 | NUR ---
ELIZABETH FROM [facility] TO ER BED 7. AAOX1. NO IN RESP DISTRESS, BREATHING EVEN AND UNLABORED. BROUGHT IN FOR INCEASED ALTERED MENTAL STATUS AND LOW O2 SAT. UPON RECEIVEDING PT, HE IS SATTING 99% ON RA. WAS AT THE BEDSIDE FRO DOC. ORDERS RECEIVED, NOTED AND CARRIED OUT. Sen SORTO PRESENT ON LFA 20G
[2021-07-15] MEDS ORDERED: LIDOCAINE 2% JEL UROJET 10 ML MM ONE ×2 (16:16→16:30)
[2021-07-15 16:42] LABS: BASOPHILS # (AUTO) 0.2 K/uL (0.0-0.2); BASOPHILS % (AUTO) 2.2 % (0.0-2.0); EOSINOPHILS % (AUTO) 0.3 % (0.0-6.0); HEMATOCRIT 39 % (39-51); HEMOGLOBIN 13.1 g/dL (13.5-17.5); LYMPHOCYTES # (AUTO) 1.3 K/uL (0.8-4.8); MEAN CORPUSCULAR HGB CONC 34 g/dl (31.0-36.0); MEAN CORPUSCULAR VOLUME 90 fL (80-96); MONOCYTES # (AUTO) 0.2 K/uL (0.1-1.30); MONOCYTES % (AUTO) 2.7 % (2.0-12.0); NEUTROPHILS # (AUTO) 7.4 K/uL (1.8-8.9); NEUTROPHILS % (AUTO) 80.8 % (43.0-81.0); PLATELET COUNT (AUTO) 273 K/uL (150-450); RED BLOOD CELL COUNT(AUTO) 4.31 MIL/uL (4.5-6.0); WHITE BLOOD COUNT (AUTO) 9.2 K/uL (4.3-11.0)
[2021-07-15 16:50] LABS: BILIRUBIN,URINE Negative (NEGATIVE); COLOR,URINE DARK YELLOW (YELLOW); LEUKOCYTE ESTERASE ,URINE Negative (NEGATIVE); NITRITE, URINE Negative (NEGATIVE); PROTEIN,URINE Negative (NEGATIVE); UGLUCOSE Negative (NEGATIVE)
[2021-07-15 16:57] LABS: BACTERIA,URINE None seen /HPF (None Seen); SQUAMOUS EPITHELIAL CELL,UR Few /HPF (None Seen); WBC,URINE 0-2 /HPF (0-3)
[2021-07-15 17:01] LABS: CALCIUM, SERUM 9.4 mg/dL (8.5-10.1); CARBON DIOXIDE 28 mmol/L (21-32); CHLORIDE 106 mmol/L (98-107); GLUCOSE 97 mg/dL (74-106); POTASSIUM 3.6 mmol/L (3.5-5.1); SODIUM SERUM 143 mmol/L (136-145); UREA NITROGEN, BLOOD 17 mg/dL (7-18)
[2021-07-15 17:07] LABS: ALANINE AMINOTRANSFERASE 21 U/L (12-78); ALBUMIN 3.1 g/dL (3.4-5.0); ALKALINE PHOSPHATASE 67 U/L (46-116); ASPARTATE AMINOTRANSFERASE 22 U/L (15-37); BILIRUBIN,DIRECT 0.2 mg/dL (0.0-0.2); BILIRUBIN,TOTAL 0.6 mg/dL (0.2-1.0); TOTAL PROTEIN, SERUM 6.8 g/dL (6.4-8.2)
--- NOTE | 2021-07-15 17:42 | NUR ---
CALLED [facility] [phone] FOR TRASPORT. SPOKE TO ALBERT, ETA 1 TO 1 AND 12/01.
--- NOTE | 2021-07-15 18:03 | NUR ---
Notification of return and report given to alanis grant at the [facility].
--- NOTE | 2021-07-15 19:24 | NUR ---
[facility] AT BEDSIDE FOR PT TRANSPORT BACK TO HIS FACILITY. PT IS IN STABLE CONDITION FOR TRANSPORT. NAD NOTED. REPORT GIVEN TO EMT.
[2021-07-15 19:25] VITALS: BP 125/73
== END 2021-07-15 19:29 | disposition home or self-care (01) ==
LOC: ER 15:49
DX: R41.82 Altered mental status, unspecified (principal); F20.9 Schizophrenia, unspecified; D64.9 Anemia, unspecified; M15.9 Polyosteoarthritis, unspecified; G20 Parkinson's disease; F02.80 Dementia in other diseases classified elsewhere, unspecified severity, without behavioral disturbance, psychotic disturbance, mood disturbance, and anxiety; Z79.899 Other long term (current) drug therapy
CPT/HCPCS: 36415; 71045; 80048; 80076; 81001; 83605; 84145; 85025; 87040 ×2; 87086; 99284; J3490

== ENCOUNTER 2021-07-17 11:20 | Emergency (ER) | payer MEDICARE, OTHER ==
[~2021-07-17] VITALS: Ht 182.9 cm; Wt 55.3 kg
--- NOTE | 2021-07-17 11:25 | NUR ---
TO ER BED 2, C/O BIB [facility] FOR DISLODGE PEG TUBE SOMETIME TODAY, AWAITING MD ROACH. SUPPLIES FOR REPLACEMENT AT BEDSIDE
--- NOTE | 2021-07-17 12:15 | NUR ---
TRANSPORT CALLED ETA 60 MINS.
--- NOTE | 2021-07-17 12:15 | NUR ---
[facility].
[2021-07-17] MEDS ORDERED: DIATR MEGLU/DIATRIZOATE SODIUM 30 ML BOTTLE (GASTROGRAPHIN) ONE (12:34)
--- NOTE | 2021-07-17 12:38 | NUR ---
CAMPUS COORDINATOR AT BEDSIDE
[2021-07-17 13:31] VITALS: BP 110/68
== END 2021-07-17 13:31 ==
LOC: ER 11:24
DX: Z43.1 Encounter for attention to gastrostomy (principal); G20 Parkinson's disease; F02.80 Dementia in other diseases classified elsewhere, unspecified severity, without behavioral disturbance, psychotic disturbance, mood disturbance, and anxiety; F20.9 Schizophrenia, unspecified; D64.9 Anemia, unspecified; Z79.899 Other long term (current) drug therapy; F31.9 Bipolar disorder, unspecified
CPT/HCPCS: 43762; 74018; 99284; Q9963

== ENCOUNTER 2021-09-10 00:29 | Emergency (ER) | payer MEDICARE, OTHER ==
[~2021-09-10] VITALS: Ht 182.9 cm; Wt 55.3 kg
--- NOTE | 2021-09-10 00:45 | NUR ---
CARLOS FROM [facility] C/O PULLED OUT GTUBE 18FR. PATIENT PLACED ON A MONITOR VSS. WAS AT BEDSIDE FOR EVAL.
[2021-09-10] MEDS ORDERED: DIATR MEGLU/DIATRIZOATE SODIUM 30 ML BOTTLE (GASTROGRAPHIN) ONE (01:01)
--- NOTE | 2021-09-10 01:08 | NUR ---
RAD AT BED SIDE
--- NOTE | 2021-09-10 01:12 | NUR ---
[facility] ETA FOR BACK TO FACILITY: [phone]
--- NOTE | 2021-09-10 02:01 | NUR ---
report given to darcy at snf
[2021-09-10 02:34] VITALS: BP 112/74
--- NOTE | 2021-09-10 02:37 | NUR ---
PT DISHCARGED BACK TO SNF. DISCHARGED INSTRUCTIONS AND RESULTS GIVEN TO SHIP SURVEYOR AT TRANSPORT. VSS AT TIME OF DISCHARGE.
== END 2021-09-10 02:38 ==
LOC: ER 00:30
DX: K94.23 Gastrostomy malfunction (principal); G20 Parkinson's disease; F02.80 Dementia in other diseases classified elsewhere, unspecified severity, without behavioral disturbance, psychotic disturbance, mood disturbance, and anxiety; F31.9 Bipolar disorder, unspecified; F20.9 Schizophrenia, unspecified; F29 Unspecified psychosis not due to a substance or known physiological condition; Z79.899 Other long term (current) drug therapy
CPT/HCPCS: 43762; 74018; 99284; Q9963

== ENCOUNTER 2021-10-21 11:32 | Inpatient (IN) | payer MEDICARE, OTHER ==
[~2021-10-21] VITALS: Ht 172.7 cm; Wt 54.0 kg
--- NOTE | 2021-10-21 11:50 | NUR ---
The patient is bibra86, from SNF, fever 104F tylenol 650mg given, BS 287, NS 1L infused. The patient is alert to his name. Respiration regular and unlabored. GT present. Attached to the monitor. Will continue to monitor the patient.
--- NOTE | 2021-10-21 11:51 | NUR ---
ASSISTANT MAINTENANCE MANAGER AT PT'S BEDSIDE
[2021-10-21] MEDS ORDERED: ACETAMINOPHEN 650 MG/SUPP.RECT RC ONE ×2 (11:56→12:00)
[2021-10-21] MEDS ORDERED: NA P133E RC (11:57)
[2021-10-21] MEDS ORDERED: ASCO500T10 GT (11:57)
[2021-10-21] MEDS ORDERED: BISA10SU11 RC (11:57)
[2021-10-21] MEDS ORDERED: POLY15DR40 EACHEYE (11:57)
[2021-10-21] MEDS ORDERED: LORA-259 PO (11:57)
[2021-10-21] MEDS ORDERED: MULT9LIQ9 GT (11:57)
[2021-10-21] MEDS ORDERED: AMIN30LI2 GT (11:57)
[2021-10-21] MEDS ORDERED: LACT-96 GT (11:57)
[2021-10-21] MEDS ORDERED: FERR325T23 GT (11:57)
[2021-10-21] MEDS ORDERED: IV NS 0.9% 1,000 ML BAG IV ONE (12:00)
[2021-10-21] MEDS ORDERED: PIPERACILLIN /TAZOBACTAM 3.375 G in IV D5W 50 ML IV ONE (12:00)
[2021-10-21] MEDS ORDERED: VANCOMYCIN 1 GM in IV D5W 250 ML IV ONE (12:00)
[2021-10-21 12:14] LABS: BASOPHILS # (AUTO) 0.1 K/uL (0.0-0.2); BASOPHILS % (AUTO) 0.5 % (0.0-2.0); EOSINOPHILS % (AUTO) 0.1 % (0.0-6.0); HEMATOCRIT 42 % (39-51); HEMOGLOBIN 13.4 g/dL (13.5-17.5); LYMPHOCYTES # (AUTO) 1.2 K/uL (0.8-4.8); LYMPHOCYTES % (AUTO) 8.8 % (20.0-44.0); MEAN CORPUSCULAR HGB CONC 32 g/dl (31.0-36.0); MEAN CORPUSCULAR VOLUME 99 fL (80-96); MONOCYTES # (AUTO) 0.4 K/uL (0.1-1.30); MONOCYTES % (AUTO) 2.9 % (2.0-12.0); NEUTROPHILS # (AUTO) 12.1 K/uL (1.8-8.9); NEUTROPHILS % (AUTO) 87.7 % (43.0-81.0); PLATELET COUNT (AUTO) 239 K/uL (150-450); WHITE BLOOD COUNT (AUTO) 13.8 K/uL (4.3-11.0)
[2021-10-21 12:19] LABS: BILIRUBIN,URINE Negative (NEGATIVE); COLOR,URINE YELLOW (YELLOW); LEUKOCYTE ESTERASE ,URINE Negative (NEGATIVE); NITRITE, URINE Negative (NEGATIVE); PROTEIN,URINE 100 mg/dl (NEGATIVE); UGLUCOSE 100 MG/DL mg/dL (NEGATIVE)
--- NOTE | 2021-10-21 12:30 | NUR ---
MOVE SHEET SUBMITTED
[2021-10-21 12:32] LABS: BACTERIA,URINE 1+ /HPF (None Seen); URINE AMORPHOUS PHOSPHATES Moderate /HPF (None Seen); WBC,URINE NONE SEEN /HPF (0-3)
[2021-10-21 12:48] LABS: ALANINE AMINOTRANSFERASE 44 U/L (12-78); ALBUMIN 2.5 g/dL (3.4-5.0); ALKALINE PHOSPHATASE 75 U/L (46-116); ASPARTATE AMINOTRANSFERASE 23 U/L (15-37); BILIRUBIN,DIRECT 0.1 mg/dL (0.0-0.2); BILIRUBIN,TOTAL 0.3 mg/dL (0.2-1.0); CALCIUM, SERUM 9.1 mg/dL (8.5-10.1); CARBON DIOXIDE 27 mmol/L (21-32); CHLORIDE 118 mmol/L (98-107); CREATININE 1.2 mg/dL (0.6-1.3); GLUCOSE 274 mg/dL (74-106); POTASSIUM 3.6 mmol/L (3.5-5.1); SODIUM SERUM 154 mmol/L (136-145); TOTAL PROTEIN, SERUM 7.2 g/dL (6.4-8.2); UREA NITROGEN, BLOOD 38 mg/dL (7-18)
--- NOTE | 2021-10-21 12:59 | NUR ---
COVID PCR SWAB DONE AND SENT TO LAB
--- NOTE | 2021-10-21 13:04 | NUR ---
[facility] CALLED VICE PRESIDENT OF MANUFACTURING PAGED.
--- NOTE | 2021-10-21 13:18 | NUR ---
DR CONTRERAS AT THE BEDSIDE
[2021-10-21] MEDS ORDERED: HYDROCODONE/APAP 5/325MG TABLET GT PRN (14:00)
[2021-10-21] MEDS ORDERED: JEVITY 1.2 CAL 1,000 ML BOTTLE GT PRN ×3 (14:00→23:00)
[2021-10-21] MEDS ORDERED: Z GUARD REMEDY 2 OZ OINT TP PRN (14:00)
[2021-10-21] MEDS ORDERED: ONDANSETRON HCL/PF 4 MG/2 ML VIAL IVP PRN (14:00)
[2021-10-21] MEDS: IV 1/2NS 1000 ML 1,000 ML IV PRN (15:00)
--- NOTE | 2021-10-21 15:38 | NUR ---
ROOM 103
--- NOTE | 2021-10-21 16:10 | NUR ---
REPORT GIVEN TO NURSE BOCANEGRA
[2021-10-21 17:20] VITALS: BP 110/61
--- NOTE | 2021-10-21 17:20 | NUR ---
[facility] OPERATIONS DUTY MANAGERWELDING TEACHER NOTES RECEIVED PATIENT FROM ER ENDORSED BY NURSE BROWN. PATIENT IS A/O X1. RESPONSIVE TO NAME. ON O2 AT 2LPM SATURATING WELL. NO SOB NOTED. NOT IN DISTRESS. WITH NO COMPLAINTS OF PAIN AT THIS TIME. WITH IV ACCESS AT LEFT FOREARM G18 WITH IVF NS AT 75ML/HR INFUSING WELL AND AT LEFT HAND G18, SALINE LOCKED, INTACT AND PATENT. MADE COMFORTABLE ON BED. SKIN ASSESSMENT IS DONE, WITH G-TUBE FOR FEEDING, G-TUBE SITE HAS PURULENT DRAINAGE. SAFETY MEASURES IN PLACE. CALL LIGHT WITHIN REACH. BED ON LOWEST AND LOCKED POSITION, SIDE RAILS UP X2. WILL CONTINUE TO MONITOR.
--- NOTE | 2021-10-21 17:25 | NUR ---
THE PATIENT IS TRANSFERED TO ROOM 103 IN STABLE CONDITION AND PER ACLS POLICY.
--- NOTE | 2021-10-21 17:25 | NUR ---
SPECIAL LIBRARY LIBRARIAN NOTES ON TELE MONITORING CURRENTLY READING SINUS RHYTHM AT 97BPM.
[2021-10-21] MEDS: ENOXAPARIN SODIUM 40 MG/0.4 ML DISP.SYRIN SQ SCH (17:43)
[2021-10-21] MEDS ORDERED: PIPERACILLIN /TAZOBACTAM 3.375 G in IV D5W 50 ML IV SCH (19:00)
--- NOTE | 2021-10-21 19:25 | NUR ---
PULMONARY DISEASE SPECIALIST CLOSING NOTES PATIENT RESTING ON BED, A/O X1. ON O2 AT 2LPM SATURATING WELL. NO SOB NOTED. NOT IN DISTRESS. WITH NO COMPLAINTS AT THIS TIME. WITH IV ACCESS AT LEFT HAND, SALINE LOCKED, PATENT AND INTACT AND AT RIGHT FOREARM G18 WITH IVF 1/2NS AT 75ML/HR. SAFETY MEASURES IN PLACE. CALL LIGHT WITHIN REACH. BED ON LOWEST AND LOCKED POSITION, SIDE RAILS UP X2. WILL ENDORSE TO NEXT SHIFT FOR CUBA.
--- NOTE | 2021-10-21 19:30 | NUR ---
MANAGEMENT TECH OPENING NOTES: RECEIVED PATIENT FROM DAY SHIFT, PATIENT IN BED, A/O X1, BED LOCKED IN PLACE, AT LOWEST POSITION, SIDE RAILS UP X2, ELEVATED TEMPERATURE OF 102.9, WILL IMPLEMENT COOLING MEASURES. PATIENT ON 2L NC, NO SIGNS OF SOB, NO DISTRESS NOTED, RFA #18, PATENT AND INTACT , AND L. HAND #18 PATENT AND INTACT. WILL CONTINUE TO MONITOR AND ADMINISTER NURSING INTERVENTIONS APPROPRIATE
[2021-10-21] MEDS: PIPERACILLIN /TAZOBACTAM 3.375 G in IV D5W 50 ML IV SCH (19:52)
[2021-10-21] MEDS ORDERED: ACETAMINOPHEN 650 MG/20.3 ML UDC GT PRN (20:00)
--- NOTE | 2021-10-21 20:00 | NUR ---
ADDICTION MEDICINE PHYSICIAN NOTES: COOLING MEASURES TAKEN TO REDUCE PATIENTS TEMPERATURE
--- NOTE | 2021-10-21 20:30 | NUR ---
ORTHOTIST PROSTHETIST NOTES: DR. GAMBLE NOTIFIED OF TEMPERATURE 102.9, ORDERED TYLENOL 650MG VIA G-TUBE.
--- NOTE | 2021-10-21 20:45 | NUR ---
MERCHANDISE WORKER NOTES: TYLENOL ADMINISTERED THROUGH G-TUBE PER DR. GAMBLE RECOMMENDATION AND ORDER.
[2021-10-21 21:00] VITALS: BP 105/56
--- NOTE | 2021-10-21 21:00 | NUR ---
TRANSPORTATION MAINTENANCE OPERATOR NOTES: PATIENT TEMPERATURE TAKEN VIA AXILLARY, REDUCED TEMPERATURE TO 98.4. WILL CONTINUE TO MONITOR AND ADMINISTER INTERVENTIONS APPROPRIATE.
[2021-10-21] MEDS: POLYVINYL ALCOHOL 15 ML BOTTLE OP SCH (21:14)
[2021-10-21] MEDS: VALPROIC ACID 250 MG/5 ML UDC GT SCH (21:17)
[2021-10-22] MEDS: PIPERACILLIN /TAZOBACTAM 3.375 G in IV D5W 50 ML IV SCH ×4 (00:06→18:36)
[2021-10-22] MEDS: VANCOMYCIN 500 MG in IV D5W 100 ML IV SCH ×2 (00:07→11:46)
[2021-10-22] MEDS: POLYVINYL ALCOHOL 15 ML BOTTLE OP SCH ×3 (05:06→21:34)
--- NOTE | 2021-10-22 06:03 | NUR ---
WIRE MESH KNITTER CLOSING NOTES: PATIENT STABLE, VS WNL, PATIENT IN BED SLEEPING, G-TUBE RUNNING JEVITY 1.2 AT 75 ML/HR, VANCOMYCIN GIVEN, ZOSYN DOSAGES GIVEN, PATIENT SHOWS NO SIGNS OF DISTRESS OR SOB, BED AT LOWEST POSITION, LOCKED IN PLACE, SIDE RAILS UP X2, CALL LIGHT WITHIN REACH, IV SITE PATENT AND INTACT, PATIENT HAD TWO BM AND 700 CC URINE VOIDED IN CHIN, JER AND CLEAR, WILL CONTINUE TO MONITOR AND ENDORSE TO MORNING SHIFT NURSE.
--- NOTE | 2021-10-22 07:47 | NUR ---
ORGANIC SEARCH LEAD OPENING NOTES RECEIVED PT A/O X 1. LYING IN SEMI FOWLERS POSITION WITH NO S/S OF RESP. DISTRESS. pT HAS JEVITY AT 1.2 RUNNING AT 75 ML PER HOUR. PT HAS A RIGHT FOREARM 18 G RUNNING 0.45% NS AT 75 ML PER HR AND A LEFT HAND 18G SALINE LOCK, FLUSHED, PATENT AND INTACT. SAFETY MEASURES IN PLACE. BED IN LOWEST LOCKED POSITION, SIDE RAILS UP X 2, CALL LIGHT WITHIN REACH.
[2021-10-22 08:00] VITALS: BP 134/62
[2021-10-22] MEDS: VALPROIC ACID 250 MG/5 ML UDC GT SCH ×2 (08:22→21:31)
[2021-10-22] MEDS ORDERED: PANTOPRAZOLE 40 MG VIAL IV SCH (09:00)
[2021-10-22] MEDS: JEVITY 1.2 CAL 1,000 ML BOTTLE GT PRN (10:49)
[2021-10-22] MEDS: IV 1/2NS 1000 ML 1,000 ML IV PRN (10:49)
[2021-10-22 12:00] VITALS: BP 106/61
[2021-10-22 15:34] LABS: BASOPHILS % (AUTO) 0.2 % (0.0-2.0); EOSINOPHILS % (AUTO) 0.3 % (0.0-6.0); HEMATOCRIT 35 % (39-51); HEMOGLOBIN 11.3 g/dL (13.5-17.5); LYMPHOCYTES # (AUTO) 1.4 K/uL (0.8-4.8); LYMPHOCYTES % (AUTO) 17.6 % (20.0-44.0); MEAN CORPUSCULAR HGB CONC 32 g/dl (31.0-36.0); MEAN CORPUSCULAR VOLUME 101 fL (80-96); MONOCYTES # (AUTO) 0.2 K/uL (0.1-1.30); MONOCYTES % (AUTO) 2.3 % (2.0-12.0); NEUTROPHILS # (AUTO) 6.3 K/uL (1.8-8.9); NEUTROPHILS % (AUTO) 79.6 % (43.0-81.0); PLATELET COUNT (AUTO) 177 K/uL (150-450); RED BLOOD CELL COUNT(AUTO) 3.49 MIL/uL (4.5-6.0); WHITE BLOOD COUNT (AUTO) 7.9 K/uL (4.3-11.0)
[2021-10-22 15:50] LABS: CALCIUM, SERUM 8.4 mg/dL (8.5-10.1); CREATININE 0.8 mg/dL (0.6-1.3); MAGNESIUM 2.3 mg/dL (1.8-2.4); PHOSPHORUS 2.1 mg/dL (2.5-4.9); POTASSIUM 3.3 mmol/L (3.5-5.1)
[2021-10-22 16:00] VITALS: BP 108/59
[2021-10-22 16:06] LABS: THYROID STIMULATING HORMONE 1.444 uIU/mL (0.358-3.74)
--- NOTE | 2021-10-22 18:50 | NUR ---
TOOLSMITH CLOSING NOTES PATIENT STABLE, VS WNL, PATIENT IN BED SLEEPING IN SEMI FOWLERS POSITION. G-TUBE RUNNING JEVITY 1.2 AT 75 ML/HR, VANCOMYCIN GIVEN, ZOSYN DOSAGES GIVEN, PATIENT SHOWS NO SIGNS OF DISTRESS OR SOB. SAFETY MEASURES RENDERED, BED AT LOWEST POSITION, LOCKED IN PLACE, SIDE RAILS UP X2, CALL LIGHT WITHIN REACH, IV SITE PATENT AND INTACT.
--- NOTE | 2021-10-22 19:40 | NUR ---
RN OPENING NOTES RECEIVED IN PATIENT IN STABLE CONDITIONS, PATIENT IS A/O X1. VITAL SIGNS WITHIN NORMAL LIMITS, NO SIGNIFICANT FINDINGS UPON INITIAL NURSING ASSESSMENTS. G TUBE IS RUNNING JEVITY 1.2 AT 75ML/HR. PATIENT SHOWS NO SIGNS OF SOB. PATIENT IS ON TELE MONITOR, NSR WITH OCCASIONAL PVCs, HR 81. R FA G#18 AND L HAND G#18 IV ACCESS REMAIN PATENT, NO SIGNS OF INFILTRATION, SL. SAFETY MEASURES RENDERED, BED AT LOWEST POSITION, LOCKED IN PLACE, SIDE RAILS UP X2, CALL LIGHT WITHIN REACH. WILL CONTINUE TO MONITOR FOR ANY CHANGES IN PATIENT HEALTH STATUS.
[2021-10-22 20:00] VITALS: BP 114/58
[2021-10-22] MEDS: ENOXAPARIN SODIUM 40 MG/0.4 ML DISP.SYRIN SQ SCH (21:32)
[2021-10-23] VITALS: BP 100/58
[2021-10-23] MEDS: JEVITY 1.2 CAL 1,000 ML BOTTLE GT PRN ×2 (00:25→22:16)
[2021-10-23] MEDS: PIPERACILLIN /TAZOBACTAM 3.375 G in IV D5W 50 ML IV SCH ×5 (00:27→23:33)
[2021-10-23] MEDS: VANCOMYCIN 500 MG in IV D5W 100 ML IV SCH (00:56)
[2021-10-23 04:00] VITALS: BP 99/61
[2021-10-23] MEDS: IV 1/2NS 1000 ML 1,000 ML IV PRN (04:21)
--- NOTE | 2021-10-23 04:58 | NUR ---
RN NOTES R FA G#18 IV ACCESS WAS LEAKING AND BECAME COMPROMISED. IV ACCESS DISCONTINUED AND REMOVED. DRESSING APPLIED. NO SIGNS OF COMPLICATIONS. 1/2 NS RUNNING ON L HAND G#18 AT 75 ML/HR. WILL CONTINUE TO MONITOR IV SITE.
[2021-10-23] MEDS: POLYVINYL ALCOHOL 15 ML BOTTLE OP SCH ×3 (05:28→21:30)
--- NOTE | 2021-10-23 06:56 | NUR ---
RN CLOSING NOTES WILL ENDORSE PATIENT TO DAY SHIFT NURSE IN STABLE CONDITIONS, PATIENT IS A/O X1. VITAL SIGNS WITHIN NORMAL LIMITS, NO SIGNIFICANT FINDINGS UPON ALL NURSING ASSESSMENTS. G TUBE IS RUNNING JEVITY 1.2 AT 75ML/HR. PATIENT SHOWS NO SIGNS OF SOB. PATIENT IS ON TELE MONITOR, NSR WITH OCCASIONAL PVCs, HR 70. R FA G#18 WAS LEAKING AND HAS BEEN REMOVED, L HAND G#18 IV ACCESS REMAINS PATENT, NO SIGNS OF INFILTRATION, SL. SAFETY MEASURES RENDERED, BED AT LOWEST POSITION, LOCKED IN PLACE, SIDE RAILS UP X2, CALL LIGHT WITHIN REACH. WILL ENDORSE TO DAY SHIFT NURSE FOR CUBA.
[2021-10-23 07:04] LABS: BASOPHILS % (AUTO) 0.2 % (0.0-2.0); EOSINOPHILS % (AUTO) 0.6 % (0.0-6.0); HEMATOCRIT 34 % (39-51); HEMOGLOBIN 11.4 g/dL (13.5-17.5); LYMPHOCYTES # (AUTO) 1.2 K/uL (0.8-4.8); LYMPHOCYTES % (AUTO) 17.7 % (20.0-44.0); MEAN CORPUSCULAR HGB CONC 33 g/dl (31.0-36.0); MEAN CORPUSCULAR VOLUME 100 fL (80-96); MONOCYTES # (AUTO) 0.2 K/uL (0.1-1.30); MONOCYTES % (AUTO) 3.7 % (2.0-12.0); NEUTROPHILS # (AUTO) 5.1 K/uL (1.8-8.9); NEUTROPHILS % (AUTO) 77.8 % (43.0-81.0); PLATELET COUNT (AUTO) 152 K/uL (150-450); RED BLOOD CELL COUNT(AUTO) 3.45 MIL/uL (4.5-6.0); WHITE BLOOD COUNT (AUTO) 6.5 K/uL (4.3-11.0)
[2021-10-23 07:38] LABS: CALCIUM, SERUM 8.7 mg/dL (8.5-10.1); CREATININE 0.8 mg/dL (0.6-1.3); MAGNESIUM 2.3 mg/dL (1.8-2.4); PHOSPHORUS 2.4 mg/dL (2.5-4.9); POTASSIUM 3.9 mmol/L (3.5-5.1)
--- NOTE | 2021-10-23 07:42 | NUR ---
RN OPENING NOTE Patient in bed asleep, A/O x 1. On room air, breathing evenly and unlabored. No SOB or s/s of distress noted. IV access on Left hand #18G, intact and patent infusing 1/2 NS @75 ml/hr. G-tube is intact, running Jevity 1.2 at 75 ml/hr. Patient on tele monitoring showing NSR with occasional PVCs. Safety precautions in place: bed in low, locked position; siderails up x 2; call light within reach. Will continue to monitor.
[2021-10-23 08:00] VITALS: BP 104/65
[2021-10-23] MEDS: PANTOPRAZOLE 40 MG/PACK PACK GT SCH (08:36)
[2021-10-23] MEDS: VALPROIC ACID 250 MG/5 ML UDC GT SCH ×2 (08:36→21:30)
[2021-10-23 12:00] VITALS: BP 101/61
[2021-10-23] MEDS: VANCOMYCIN HCL 0.75 GM in IV D5W 250 ML IV SCH (12:21)
[2021-10-23] MEDS: IV D5W 1,000 ML IV PRN (14:30)
[2021-10-23] MEDS ORDERED: IV D5W 1,000 ML IV SCH (14:30)
[2021-10-23 16:00] VITALS: BP 106/63
--- NOTE | 2021-10-23 18:49 | NUR ---
GRAB JACK MAN CLOSING NOTE Patient in bed, resting comfortably. A/O x 1. Stable on room air, no SOB or s/s of distress noted. IV access on Left hand #18G, intact and patent, infusing D5W @ 80 ml/hr. G-tube intact and patent running Jevity @75 ml/hr, patient tolerating well. On tele monitoring showing SR, HR on the 70's. Rivero catheter in place with a urine output of 200 cc, no signs of infiltrations noted. Patient kept clean and dry. Due meds given. Safety measures maintained: bed in low, locked position; siderails up x 2; call light within reach. Will endorse to bakery helper nurse for CUBA.
[2021-10-23 20:00] VITALS: BP 106/72
[2021-10-23] MEDS: ENOXAPARIN SODIUM 40 MG/0.4 ML DISP.SYRIN SQ SCH (21:31)
[2021-10-24] VITALS: BP 93/59
[2021-10-24] MEDS: VANCOMYCIN HCL 0.75 GM in IV D5W 250 ML IV SCH ×3 (00:08→23:12)
[2021-10-24 04:00] VITALS: BP 111/66
[2021-10-24] MEDS: POLYVINYL ALCOHOL 15 ML BOTTLE OP SCH ×3 (05:19→21:24)
[2021-10-24] MEDS: PIPERACILLIN /TAZOBACTAM 3.375 G in IV D5W 50 ML IV SCH ×4 (05:20→23:09)
[2021-10-24] MEDS: IV D5W 1,000 ML IV PRN (05:23)
[2021-10-24 08:00] VITALS: BP 102/61
[2021-10-24] MEDS: PANTOPRAZOLE 40 MG/PACK PACK GT SCH (08:55)
[2021-10-24] MEDS: VALPROIC ACID 250 MG/5 ML UDC GT SCH ×2 (08:55→21:22)
[2021-10-24 09:53] LABS: BASOPHILS % (AUTO) 0.4 % (0.0-2.0); HEMATOCRIT 41 % (39-51); HEMOGLOBIN 12.9 g/dL (13.5-17.5); LYMPHOCYTES # (AUTO) 1.4 K/uL (0.8-4.8); LYMPHOCYTES % (AUTO) 23.5 % (20.0-44.0); MEAN CORPUSCULAR HGB CONC 32 g/dl (31.0-36.0); MEAN CORPUSCULAR VOLUME 100 fL (80-96); MONOCYTES # (AUTO) 0.3 K/uL (0.1-1.30); MONOCYTES % (AUTO) 5.8 % (2.0-12.0); NEUTROPHILS # (AUTO) 4.1 K/uL (1.8-8.9); NEUTROPHILS % (AUTO) 69.3 % (43.0-81.0); PLATELET COUNT (AUTO) 150 K/uL (150-450); RED BLOOD CELL COUNT(AUTO) 4.04 MIL/uL (4.5-6.0); WHITE BLOOD COUNT (AUTO) 5.9 K/uL (4.3-11.0)
[2021-10-24 10:13] LABS: CALCIUM, SERUM 8.7 mg/dL (8.5-10.1); CREATININE 0.8 mg/dL (0.6-1.3); MAGNESIUM 2.2 mg/dL (1.8-2.4); PHOSPHORUS 2.7 mg/dL (2.5-4.9); POTASSIUM 4.1 mmol/L (3.5-5.1)
[2021-10-24 12:00] VITALS: BP 100/63
[2021-10-24 16:00] VITALS: BP 95/65
[2021-10-24] MEDS: JEVITY 1.2 CAL 1,000 ML BOTTLE GT PRN (17:17)
--- NOTE | 2021-10-24 19:30 | NUR ---
RN NOTES RECEIVED PT FOR CONTINUITY OF CARE. PATIENT A/OX1 IN NO S/SX OF ACUTE DISTRESS AT THIS TIME; CURRENTLY ON ROOM AIR; WITH 02 SAT >95% AT THIS TIME. WILL ENSURE SAFETY MEASURES WITHIN THE SHIFT. PATIENT BED ALARM IS ON. HEAD OF BED ELEVATED. BED IS LOCKED, IN LOWEST POSITION AND SIDE RAILS UP. CALL LIGHT WITHIN REACH OF THE PATIENT. APPLICABLE ISOLATION PRECAUTIONS IN PLACE. WILL CONTINUE TO MONITOR AND REASSESS FOR ANY CHANGES AND WILL CARRY OUT ANY ONGOING AND ACTIVE MD ORDER.
--- NOTE | 2021-10-24 19:35 | NUR ---
CHILD NEUROLOGIST CLOSING NOTE Patient in bed, resting comfortably. A/O x 1. Stable on room air, no SOB or s/s of distress noted. IV access on Left hand #18G, intact and patent, infusing D5W @ 80 ml/hr. G-tube intact and patent running Jevity @75 ml/hr, patient tolerating well. On tele monitoring showing SR, HR on the 70's. Rivero catheter in place with a urine output of 800 AT 1330 AND 600 AT 1700 , no signs of infiltrations noted. Patient kept clean and dry. Due meds given. Safety measures maintained: bed in low, locked position; siderails up x 2; call light within reach. Will endorse to toy assembler nurse for CUBA.
--- NOTE | 2021-10-24 19:55 | NUR ---
RN NOTE Patient RECEIVED in bed, resting comfortably. A/O x 1. Stable on room air, no SOB or s/s of distress noted. IV access on Left hand #18G, intact and patent, infusing D5W @ 80 ml/hr. G-tube intact and patent running Jevity @75 ml/hr, patient tolerating well. On tele monitoring showing SR, HR on the 70's. Rivero catheter in place with a urine output of 200 cc, no signs of infiltrations noted. Patient kept clean and dry. Due meds given. Safety measures maintained: bed in low, locked position; siderails up x 2; call light within reach. Will CONTINUE for CUBA. Addendum: 10/24/21 at 1957 by CHAMP PALUMBO RN JUDI WYATT NOTE
[2021-10-24 20:00] VITALS: BP 105/67
[2021-10-24] MEDS: ENOXAPARIN SODIUM 40 MG/0.4 ML DISP.SYRIN SQ SCH (21:23)
[2021-10-25] VITALS: BP 107/69
[2021-10-25 04:00] VITALS: BP 106/66
--- NOTE | 2021-10-25 04:00 | NUR ---
RN NOTES NO NOTED CHANGES IN PATIENT CONDITION AT THIS TIME; PATIENT VITALS STABLE, NO SIGNS OF ACUTE RESPIRATORY DISTRESS. AM PATIENT CARE RENDERED.WILL CONTINUE TO MONITOR AND REASSESS FOR ANY CHANGES THROUGHOUT THE SHIFT.
[2021-10-25] MEDS: IV D5W 1,000 ML IV PRN (04:30)
[2021-10-25] MEDS: PIPERACILLIN /TAZOBACTAM 3.375 G in IV D5W 50 ML IV SCH ×2 (05:41→11:21)
[2021-10-25] MEDS: POLYVINYL ALCOHOL 15 ML BOTTLE OP SCH ×2 (05:41→12:30)
--- NOTE | 2021-10-25 06:56 | NUR ---
RN CLOSING NOTE: PATIENT REMAINS IN ROOM IN NO SIGNS OF RESPIRATORY DISTRESS, PATIENT STILL ON ROOM AIR ;TOLERATING WELL SATURATING @ >95% SP02. SAFETY MEASURES IMPLEMENTED, BED IN LOWEST POSITION, LOCKED, SIDE RAILS UP, CALL LIGHT WITHIN REACH. ALL NEEDS AND ORDERS ADDRESSED DURING THE SHIFT. IV ACCESS MAINTAINED INTACT, SECURED AND FLUSHING WELL. ALL DUE MEDS GIVEN ORDERED & SCHEDULED ; PATIENT TOLERATED WELL. PATIENT KEPT CLEAN AND COMFORTABLE WITHIN THE SHIFT. PATIENT ENDORSED TO INCOMING SHIFT RN WITH STABLE VITAL SIGN AND FOR CONTINUITY OF CARE.
[2021-10-25 07:23] LABS: BASOPHILS # (AUTO) 0.1 K/uL (0.0-0.2); BASOPHILS % (AUTO) 0.9 % (0.0-2.0); EOSINOPHILS % (AUTO) 1.3 % (0.0-6.0); HEMATOCRIT 38 % (39-51); HEMOGLOBIN 12.5 g/dL (13.5-17.5); LYMPHOCYTES # (AUTO) 1.6 K/uL (0.8-4.8); LYMPHOCYTES % (AUTO) 23.8 % (20.0-44.0); MEAN CORPUSCULAR HGB CONC 33 g/dl (31.0-36.0); MEAN CORPUSCULAR VOLUME 99 fL (80-96); MONOCYTES # (AUTO) 0.2 K/uL (0.1-1.30); MONOCYTES % (AUTO) 3.6 % (2.0-12.0); NEUTROPHILS # (AUTO) 4.6 K/uL (1.8-8.9); NEUTROPHILS % (AUTO) 70.4 % (43.0-81.0); PLATELET COUNT (AUTO) 179 K/uL (150-450); RED BLOOD CELL COUNT(AUTO) 3.87 MIL/uL (4.5-6.0); WHITE BLOOD COUNT (AUTO) 6.6 K/uL (4.3-11.0)
--- NOTE | 2021-10-25 07:30 | NUR ---
RN NOTE PATIENT OBSERVED IN BED A/OX 1 ON ROOM AIR O2 SAT OF 98% BREATHING EVEN AND UNLABORED, ON CHIN CATHETER DRAINING WELL WITH NO HEMATURIA NOTED, PATIENT ON GT FEEDING JEVITY 1.2 @75 CC/HR TOLERATING WELL WITH 10CC RESIDUAL NOTED, PATENT UPON ASSESSMENT, IV LEFT FOREARM GAUGE 22 WITH D5W INFUSING WELL 80CC/HR PATENT, SAFETY MEASURES OBSERVED, CALL LIGHT WITHIN REACH, WILL CONTINUE TO MONITOR.
[2021-10-25 07:36] LABS: CREATININE 0.8 mg/dL (0.6-1.3); MAGNESIUM 2.4 mg/dL (1.8-2.4); PHOSPHORUS 3.6 mg/dL (2.5-4.9); POTASSIUM 4.5 mmol/L (3.5-5.1)
[2021-10-25 08:00] VITALS: BP 109/64
[2021-10-25] MEDS: VALPROIC ACID 250 MG/5 ML UDC GT SCH (08:13)
[2021-10-25] MEDS: PANTOPRAZOLE 40 MG/PACK PACK GT SCH (08:13)
[2021-10-25] MEDS: JEVITY 1.2 CAL 1,000 ML BOTTLE GT PRN (08:18)
[2021-10-25 12:00] VITALS: BP 111/63
[2021-10-25] MEDS: VANCOMYCIN HCL 0.75 GM in IV D5W 250 ML IV SCH (12:29)
[2021-10-25] MEDS ORDERED: PIPE3.379 IV (12:52)
[2021-10-25] MEDS ORDERED: VANC750P13 IV (12:52)
--- NOTE | 2021-10-25 15:33 | NUR ---
RN NOTE REPORT GIVEN TO JUDI GODINEZ
[2021-10-25 16:00] VITALS: BP 112/78
--- NOTE | 2021-10-25 17:00 | NUR ---
RN NOTE PATIENT PICKED UP BY TRANSPORT [facility]BULANCE VTS WNL
== END 2021-10-25 17:38 | DRG 871 ==
LOC: ER 11:35 → TELE1 17:03 → MEDSG1 10-25 07:24
PROVIDERS: ATTEND Nurse Practitioner Acute Care
DX: A41.9 Sepsis, unspecified organism (principal); E43 Unspecified severe protein-calorie malnutrition; G93.41 Metabolic encephalopathy; E87.0 Hyperosmolality and hypernatremia; N17.9 Acute kidney failure, unspecified; E87.2 Acidosis; R64 Cachexia; Z68.1 Body mass index [BMI] 19.9 or less, adult; G20 Parkinson's disease; F41.9 Anxiety disorder, unspecified; F32.A Depression, unspecified; E11.9 Type 2 diabetes mellitus without complications; F20.9 Schizophrenia, unspecified; Z20.822 Contact with and (suspected) exposure to COVID-19; Z93.1 Gastrostomy status; M62.50 Muscle wasting and atrophy, not elsewhere classified, unspecified site; F29 Unspecified psychosis not due to a substance or known physiological condition; E88.09 Other disorders of plasma-protein metabolism, not elsewhere classified; F02.80 Dementia in other diseases classified elsewhere, unspecified severity, without behavioral disturbance, psychotic disturbance, mood disturbance, and anxiety; T14.8XXA Other injury of unspecified body region, initial encounter; X58.XXXA Exposure to other specified factors, initial encounter; Y93.9 Activity, unspecified; Y92.129 Unspecified place in nursing home as the place of occurrence of the external cause; L08.9 Local infection of the skin and subcutaneous tissue, unspecified
CPT/HCPCS: 36415; 71045-TC; 80048-TC; 80076-TC; 80202-TC; 81001; 82962-TC; 83605-TC; 83735-TC; 84100-TC; 84443-TC; 84484-TC; 85025-TC; 85730-TC; 87040-TC; 87081-TC; 87086-TC; C9113; G0378; J1650; J2543; J3370; J3490; J7030; J7060; J7070; U0003

== ENCOUNTER 2021-11-03 13:52 | Inpatient (IN) | payer MEDICARE, MEDICAID ==
[~2021-11-03] VITALS: Ht 172.7 cm; Wt 60.8 kg
[~2021-11-03 13:52] MED LIST changes: +AMIN30LI2 GT; -ASCO500C17 PO; +ASCO500T10 GT; +BISA10SU11 RC; -DEXT15DR6 OP; +FERR325T23 GT; -LACT-209 GT; +LACT-96 GT; +LORA-259 PO; -MIRT-121 GT; +MULT9LIQ9 GT; +NA P133E RC; -NITR100C6 GT; +PIPE3.379 IV; +POLY15DR40 EACHEYE; +VANC750P13 IV
--- NOTE | 2021-11-03 14:12 | NUR ---
BIB PA FROM [facility]ARE [facility],DESATURATION SINCE YESTERDAY,88-87% WHICH GOES UP TO 96-98% WITH 2L NC,HOT TO TOUCH. THE PATIENT`S OXYGEN SATURATION IN ROOM AIR IS AT 94%. RESPIRATION REGULAR AND UNLABORED. IN NO APPARENT DISTRESS. ATTACHED TO THE MONITOR.
--- NOTE | 2021-11-03 14:28 | NUR ---
IV LINE IS ESTABLISHED, BLOOD SPECIMEN COLLECTED AND SENT TO THE LAB. THE LINE IS SALINE LOCKED.
[2021-11-03] MEDS ORDERED: IV NS 0.9% 1,000 ML BAG IV ONE (14:30)
--- NOTE | 2021-11-03 14:30 | NUR ---
OXYGEN THERAPY TEACHER AT BEDSIDE
[2021-11-03 14:33] LABS: BASOPHILS # (AUTO) 0.1 K/uL (0.0-0.2); EOSINOPHILS % (AUTO) 0.8 % (0.0-6.0); HEMATOCRIT 40 % (39-51); HEMOGLOBIN 13.1 g/dL (13.5-17.5); LYMPHOCYTES # (AUTO) 1.8 K/uL (0.8-4.8); MEAN CORPUSCULAR HGB CONC 32 g/dl (31.0-36.0); MEAN CORPUSCULAR VOLUME 99 fL (80-96); MONOCYTES # (AUTO) 0.4 K/uL (0.1-1.30); MONOCYTES % (AUTO) 3.3 % (2.0-12.0); NEUTROPHILS # (AUTO) 8.7 K/uL (1.8-8.9); NEUTROPHILS % (AUTO) 78.9 % (43.0-81.0); PLATELET COUNT (AUTO) 374 K/uL (150-450); RED BLOOD CELL COUNT(AUTO) 4.07 MIL/uL (4.5-6.0)
[2021-11-03 14:53] LABS: CALCIUM, SERUM 9.6 mg/dL (8.5-10.1); CARBON DIOXIDE 32 mmol/L (21-32); CHLORIDE 113 mmol/L (98-107); CREATININE 0.9 mg/dL (0.6-1.3); GLUCOSE 187 mg/dL (74-106); POTASSIUM 3.8 mmol/L (3.5-5.1); SODIUM SERUM 152 mmol/L (136-145); UREA NITROGEN, BLOOD 36 mg/dL (7-18)
[2021-11-03] MEDS ORDERED: IOHEXOL-300 100 ML VIAL IV ONE (15:03)
[2021-11-03] MEDS ORDERED: IV NS 0.9% 250 ML IV ONE (15:03)
[2021-11-03] MEDS ORDERED: CT SWABBABLE VALVE TRANS SET 1 EA INFUS.SET MC ONE (15:03)
[2021-11-03] MEDS ORDERED: CEFEPIME 1 GM in IV D5W 50 ML IV ONE (15:30)
[2021-11-03] MEDS ORDERED: VANCOMYCIN 1 GM in IV D5W 250 ML IV ONE (15:30)
[2021-11-03] MEDS ORDERED: NA PHOS,M-B/NA PHOS,DI-BA 1 EA ENEMA RC PRN (16:00)
[2021-11-03] MEDS ORDERED: ONDANSETRON HCL/PF 4 MG/2 ML VIAL IVP PRN (16:00)
[2021-11-03] MEDS ORDERED: Z GUARD REMEDY 2 OZ OINT TP PRN (16:00)
[2021-11-03] MEDS ORDERED: MAGNESIUM HYDROXIDE 30 ML UDC PO PRN (16:00)
[2021-11-03] MEDS ORDERED: MORPHINE SULFATE INJ 2 MG/ML DISP.SYRIN IV PRN (16:00)
[2021-11-03] MEDS ORDERED: MAGNESIUM HYDROXIDE 30 ML UDC GT PRN (16:00)
[2021-11-03] MEDS ORDERED: ACETAMINOPHEN 325 MG TABLET MC PRN (16:00)
[2021-11-03] MEDS ORDERED: BISACODYL SUPP (10 MG) 10 MG/SUPP.RECT SUPP.RECT RC PRN (16:00)
[2021-11-03] MEDS ORDERED: ACETAMINOPHEN 650 MG/SUPP.RECT RC PRN (16:00)
--- NOTE | 2021-11-03 16:05 | NUR ---
[facility] BED 114-1
--- NOTE | 2021-11-03 16:24 | NUR ---
URINE COLLECTED AND SENT TO THE LAB
--- NOTE | 2021-11-03 16:38 | NUR ---
REPORT GIVEN TO PAULINO LAU FOR CUBA, TRANSFER AFTER SHIFT
[2021-11-03 16:56] LABS: BILIRUBIN,URINE NEGATIVE (NEGATIVE); COLOR,URINE YELLOW (YELLOW); LEUKOCYTE ESTERASE ,URINE NEGATIVE (NEGATIVE); NITRITE, URINE NEGATIVE (NEGATIVE); PROTEIN,URINE TRACE mg/dl (NEGATIVE); UGLUCOSE NEGATIVE (NEGATIVE)
[2021-11-03] MEDS: PANTOPRAZOLE 40 MG VIAL IV SCH (17:00)
[2021-11-03] MEDS: ENOXAPARIN SODIUM 40 MG/0.4 ML DISP.SYRIN SQ SCH (17:00)
[2021-11-03] MEDS ORDERED: POLYVINYL ALCOHOL 15 ML BOTTLE OP SCH (17:00)
[2021-11-03 17:08] LABS: BACTERIA,URINE 2+ /HPF (None Seen); SQUAMOUS EPITHELIAL CELL,UR 0-2 /HPF (None Seen); URINE AMORPHOUS URATE Moderate /HPF (None Seen); WBC,URINE 0-2 /HPF (0-3)
[2021-11-03] MEDS ORDERED: ENOXAPARIN SODIUM 40 MG/0.4 ML DISP.SYRIN SQ ONE (17:29)
[2021-11-03] MEDS ORDERED: PANTOPRAZOLE 40 MG VIAL ONE (17:29)
--- NOTE | 2021-11-03 19:33 | NUR ---
THE PATIENT IS TRANSFERED TO [facility] PER ACLS POLICY
--- NOTE | 2021-11-03 19:55 | NUR ---
ICING COATER NOTES RECEIVED PT FROM ER VIA TERELL ACCOMPANIED BY 2 ER STAFF AND TRANSFERRED TO BED VIA 2 PERSON ASSIST. PT IS A/OX1, CONFUSED; ON 2L OF O2 VIA NC , NO SOB NOTED NOT IN DISTRESS. COMPREHENSIVE PHYSICAL ASSESSMENT AND PATIENT CARE DONE. PT. NOTED WITH RT. AC PERIPHERAL LINE, PATENT INTACT. ALSO PT IS IN GTUBE FEEDING, JEVITY 1.2 @ 75ML/HR X [address], PATENT AND NO RESIDUAL NOTED. CALL LIGHT WITHIN REACH, SAFETY MEASURES AND ISOLATION PRECAUTION IN PLACE, WILL CONTINUE MONITOR AND ASSESS THROUGHOUT THE SHIFT. DONOR SUPPORT TECHNICIAN MADE AWARE.
[2021-11-03 20:00] VITALS: BP 114/66
[2021-11-03] MEDS: DONEPEZIL 5 MG TABLET GT SCH (22:33)
[2021-11-03] MEDS: VALPROIC ACID 250 MG/5 ML UDC GT SCH (22:33)
[2021-11-03] MEDS: OLANZAPINE 2.5 MG TABLET GT SCH (22:34)
[2021-11-03] MEDS: IV 1/2NS 1000 ML 1,000 ML IV PRN (22:40)
[2021-11-03] MEDS: POLYVINYL ALCOHOL 15 ML BOTTLE OP SCH (22:53)
[2021-11-03] MEDS: JEVITY 1.2 CAL 1,000 ML BOTTLE GT PRN (23:12)
[2021-11-04] VITALS: BP 114/66
[2021-11-04] MEDS: CEFEPIME 1 GM in IV D5W 50 ML IV SCH ×4 (00:53→23:25)
[2021-11-04 04:00] VITALS: BP 101/66
[2021-11-04] MEDS: VANCOMYCIN 1 GM in IV D5W 250 ML IV SCH ×2 (05:31→17:29)
[2021-11-04] MEDS: POLYVINYL ALCOHOL 15 ML BOTTLE OP SCH ×3 (05:31→21:29)
--- NOTE | 2021-11-04 06:56 | NUR ---
RN CLOSING NOTE: PATIENT REMAINS IN ROOM IN NO SIGNS OF RESPIRATORY DISTRESS, PATIENT STILL ON 2L OF 02 VIA NC TOLERATING WELL SATURATING @ 99% SP02. SAFETY MEASURES IMPLEMENTED, BED IN LOWEST POSITION, LOCKED, SIDE RAILS UP, CALL LIGHT WITHIN REACH. ALL NEEDS AND ORDERS ADDRESSED DURING THE SHIFT. IV ACCESS MAINTAINED INTACT, SECURED AND FLUSHING WELL. ALL DUE MEDS GIVEN ORDERED & SCHEDULED PATIENT TOLERATED WELL. PATIENT KEPT CLEAN AND COMFORTABLE WITHIN THE SHIFT. PATIENT ENDORSED TO INCOMING SHIFT.
--- NOTE | 2021-11-04 07:23 | NUR ---
ARTIFICIAL BREAST FABRICATOR OPENING NOTE PATIENT IN ROOM A/O X 1 IN NO SIGNS OF RESPIRATORY DISTRESS, ON 2L OF 02 VIA NC SATURATING @ 99% SP02. IV ACCESS RFA 18G WITH NS RUNNING AT 75ML. NO COMPLAINTS OF PAIN AT THIS TIME. SAFETY MEASURES IMPLEMENTED, BED IN LOWEST POSITION, LOCKED, SIDE RAILS UP, CALL LIGHT WITHIN REACH.
[2021-11-04 07:36] LABS: BASOPHILS # (AUTO) 0.1 K/uL (0.0-0.2); BASOPHILS % (AUTO) 0.7 % (0.0-2.0); HEMATOCRIT 37 % (39-51); HEMOGLOBIN 11.8 g/dL (13.5-17.5); LYMPHOCYTES # (AUTO) 1.6 K/uL (0.8-4.8); LYMPHOCYTES % (AUTO) 20.7 % (20.0-44.0); MEAN CORPUSCULAR HGB CONC 32 g/dl (31.0-36.0); MEAN CORPUSCULAR VOLUME 101 fL (80-96); MONOCYTES # (AUTO) 0.4 K/uL (0.1-1.30); MONOCYTES % (AUTO) 4.7 % (2.0-12.0); NEUTROPHILS # (AUTO) 5.7 K/uL (1.8-8.9); NEUTROPHILS % (AUTO) 71.9 % (43.0-81.0); PLATELET COUNT (AUTO) 252 K/uL (150-450); RED BLOOD CELL COUNT(AUTO) 3.65 MIL/uL (4.5-6.0); WHITE BLOOD COUNT (AUTO) 7.9 K/uL (4.3-11.0)
[2021-11-04 08:00] VITALS: BP 100/55
[2021-11-04 08:32] LABS: CALCIUM, SERUM 9.2 mg/dL (8.5-10.1); MAGNESIUM 2.3 mg/dL (1.8-2.4); PHOSPHORUS 3.5 mg/dL (2.5-4.9); POTASSIUM 4.3 mmol/L (3.5-5.1)
[2021-11-04] MEDS: PANTOPRAZOLE 40 MG VIAL IV SCH (08:49)
[2021-11-04] MEDS: FERROUS SULFATE (325 MG) 325 MG/TAB TABLET GT SCH (08:50)
[2021-11-04] MEDS: VALPROIC ACID 250 MG/5 ML UDC GT SCH ×2 (08:50→21:29)
[2021-11-04] MEDS: ASCORBIC ACID 500 MG TABLET GT SCH (08:50)
[2021-11-04] MEDS: MULTIVITAMINS,THERAGRAN 1 UDTAB TABLET PO SCH (08:50)
[2021-11-04] MEDS: OLANZAPINE 2.5 MG TABLET GT SCH ×2 (08:50→21:29)
[2021-11-04] MEDS: PROSOURCE / PROSTAT (PYXIS) 30 ML UDC GT SCH (08:51)
--- NOTE | 2021-11-04 11:00 | NUR ---
WOUND CARE CONSULT: PT PRESETS WITH LEFT HEEL INTACT DEEP TISSUE INJURY AND DEEP TISSUE INJURIES TO SACRUM AND TO RT LOWER BUTTOCK, ALL PRESENT ON ADMISSION. SOME INDURATION NOTED TO RT LOWER BUTTOCK. SURGICAL AND DPM CONSULTS CALLED TO DR TRENT AND DR CAMACHO. RECOMMENDATIONS MADE FOR SKIN PROTECTION. DISCUSSED WITH NURSING STAFF. PT IS ON HILDA ISOFLEX LOW AIRLOSS BED. IN AGREEMENT WITH PLAN OF CARE.
[2021-11-04 12:00] VITALS: BP 100/62
[2021-11-04 16:00] VITALS: BP 97/65
[2021-11-04] MEDS: ENOXAPARIN SODIUM 40 MG/0.4 ML DISP.SYRIN SQ SCH (17:04)
[2021-11-04] MEDS: JEVITY 1.2 CAL 1,000 ML BOTTLE GT PRN (17:05)
--- NOTE | 2021-11-04 18:46 | NUR ---
RN CLOSING NOTE PATIENT REMAINS IN ROOM IN NO SIGNS OF RESPIRATORY DISTRESS, PATIENT 2L OF 02 VIA NC TOLERATING WELL SATURATING @ 99% SP02. PATIENT TOLERATED JEVITY FEEDING WELL. SAFETY MEASURES IMPLEMENTED, BED IN LOWEST POSITION, LOCKED, SIDE RAILS UP, CALL LIGHT WITHIN REACH. ALL NEEDS AND ORDERS ADDRESSED DURING THE SHIFT. IV ACCESS MAINTAINED INTACT, SECURED AND FLUSHING WELL. ALL DUE MEDS GIVEN ORDERED & SCHEDULED PATIENT TOLERATED WELL. PATIENT KEPT CLEAN AND COMFORTABLE WITHIN THE SHIFT. PATIENT ENDORSED TO NIGHT NURSE FOR CUBA.
--- NOTE | 2021-11-04 19:30 | NUR ---
RESEARCH RN SPEC OPENING NOTES: RECEIVED PATIENT FROM DAY SHIFT, PATIENT IN BED, AWAKE, BED AT LOWEST POSITION, BRAKES LOCKED AND IN PLACE, SIDE RAILS UP X2, CALL LIGHT WITHIN REACH, PATIENT A/O X1, TELE MONITOR SHOWS NSR, R. FA #18 PATENT AND INTACT, NS RUNNING AT 75 ML/HR, PATIENT ON 2L NC, SATURATING 99%, NO SIGNS OF SOB, NO DISTRESS. RUNNING G-TUBE JEVITY 1.2 AT 75 ML/HR. WILL CONTINUE TO MONITOR AND IMPLEMENT NURSING INTERVENTIONS NECESSARY.
[2021-11-04 20:00] VITALS: BP 94/65
[2021-11-04] MEDS: DONEPEZIL 5 MG TABLET GT SCH (21:30)
[2021-11-05] VITALS: BP 96/74
[2021-11-05] MEDS: IV 1/2NS 1000 ML 1,000 ML IV PRN (03:59)
[2021-11-05 04:00] VITALS: BP 96/56
[2021-11-05] MEDS: VANCOMYCIN 1 GM in IV D5W 250 ML IV SCH (05:07)
[2021-11-05] MEDS: POLYVINYL ALCOHOL 15 ML BOTTLE OP SCH ×3 (05:07→21:09)
--- NOTE | 2021-11-05 07:01 | NUR ---
STOCK PARTS FABRICATOR CLOSING NOTES: PATIENT A/O X1, CONFUSED, V/S WNL, ON NC 2L, NO SIGNS OF SOB, NO DISTRESS, SATURATION 100%, JEVITY 1.2 RUNNING AT 75 ML/HR, R. FA #18 PATENT AND INTACT, RUNNING 0.45% NS AT 75 ML/HR, BED AT LOWEST POSITION, BRAKES LOCKED AND IN PLACE, SIDE RAILS UP X2, CALL LIGHT WITHIN REACH, WILL CONTINUE TO MONITOR AND ENDORSE TO DAY SHIFT NURSE.
[2021-11-05 07:13] LABS: BASOPHILS % (AUTO) 0.8 % (0.0-2.0); EOSINOPHILS % (AUTO) 1.9 % (0.0-6.0); HEMATOCRIT 36 % (39-51); HEMOGLOBIN 11.5 g/dL (13.5-17.5); LYMPHOCYTES # (AUTO) 1.5 K/uL (0.8-4.8); MEAN CORPUSCULAR HGB CONC 32 g/dl (31.0-36.0); MEAN CORPUSCULAR VOLUME 99 fL (80-96); MONOCYTES # (AUTO) 0.3 K/uL (0.1-1.30); MONOCYTES % (AUTO) 4.4 % (2.0-12.0); NEUTROPHILS # (AUTO) 4.4 K/uL (1.8-8.9); NEUTROPHILS % (AUTO) 68.9 % (43.0-81.0); PLATELET COUNT (AUTO) 256 K/uL (150-450); RED BLOOD CELL COUNT(AUTO) 3.65 MIL/uL (4.5-6.0); WHITE BLOOD COUNT (AUTO) 6.4 K/uL (4.3-11.0)
[2021-11-05 07:33] LABS: CALCIUM, SERUM 9.4 mg/dL (8.5-10.1); CREATININE 0.8 mg/dL (0.6-1.3)
--- NOTE | 2021-11-05 07:35 | NUR ---
RN NOTE PATIENT IS IN BED WITH HOB AT SEMI FOWLERS POSITION. PATIENT IS ON 2L NC WITH NO SIGNS OF LABORED BREATHING. PATIENT IS AOX1. GTUBE IS IN PLACE WITH NO RESIDUAL. RFA 18 IS PATENT AND INTACT. BED IS LOCKED IN THE LOWEST POSITION, 3GUARD RAILS RAISED, CALL BAXTER WITHIN REACH, AND ALL HOSPITAL SAFETY PRECAUTIONS ARE BEING FOLLOWED. WILL CONTINUE TO MONITOR THROUGHOUT SHIFT.
[2021-11-05 08:00] VITALS: BP 99/58
[2021-11-05] MEDS: ASCORBIC ACID 500 MG TABLET GT SCH (08:14)
[2021-11-05] MEDS: VALPROIC ACID 250 MG/5 ML UDC GT SCH ×2 (08:14→21:07)
[2021-11-05] MEDS: MULTIVITAMINS,THERAGRAN 1 UDTAB TABLET PO SCH (08:15)
[2021-11-05] MEDS: OLANZAPINE 2.5 MG TABLET GT SCH ×2 (08:15→21:08)
[2021-11-05] MEDS: PROSOURCE / PROSTAT (PYXIS) 30 ML UDC GT SCH (08:15)
[2021-11-05] MEDS: FERROUS SULFATE (325 MG) 325 MG/TAB TABLET GT SCH (08:15)
[2021-11-05] MEDS: PANTOPRAZOLE 40 MG VIAL IV SCH (08:15)
[2021-11-05] MEDS: JEVITY 1.2 CAL 1,000 ML BOTTLE GT PRN ×2 (08:21→22:20)
[2021-11-05] MEDS: CEFEPIME 1 GM in IV D5W 50 ML IV SCH ×2 (08:21→15:59)
[2021-11-05 12:00] VITALS: BP 113/65
[2021-11-05 16:00] VITALS: BP 94/52
[2021-11-05] MEDS: ENOXAPARIN SODIUM 40 MG/0.4 ML DISP.SYRIN SQ SCH (16:00)
--- NOTE | 2021-11-05 18:35 | NUR ---
RN NOTE PATIENT REMOVED RAC IV ACCESS. DR. MOULTON AWARE. OKAY FOR MIDLINE INSERTION.
--- NOTE | 2021-11-05 18:40 | NUR ---
RN NOTE PATIENT IS IN BED WITH HOB AT SEMI FOWLERS POSITION. PATIENT IS ON 2L NC WITH NO SIGNS OF LABORED BREATHING. PATIENT IS AOX1. GTUBE IS IN PLACE WITH NO RESIDUAL. BED IS LOCKED IN THE LOWEST POSITION, 3GUARD RAILS RAISED, CALL BAXTER WITHIN REACH, AND ALL HOSPITAL SAFETY PRECAUTIONS ARE BEING FOLLOWED. ALL DUE MEDICATIONS GIVEN AND PATIENT REMAINED STABLE THROUGHOUT SHIFT. WILL ENDORSE TO GAS WELDING MACHINE OPERATOR RN.
[2021-11-05 20:00] VITALS: BP 96/68
--- NOTE | 2021-11-05 20:03 | NUR ---
TIRE SERVICER NOTE MIDLINE NURSE BURT INSERTED MIDLINE IN GAURAV #18 G WITH GOOD BACKFLOW OF BLOOD. BUT PT KEPT ON TRYING TO REACH FOR IT TO PULL IT OUT. ALSO KEPT ON REMOVING N/C, LESLYE BUSTOS COMPUTER GAME TESTER INFORMED AND RECEIVED NEW ORDER FOR BILATERAL SOFT WRIST RESTRAINTS. ORDER NOTED AND CARRIED OUT. CONTINUE TO MONITOR HIM.
--- NOTE | 2021-11-05 20:21 | NUR ---
URINALYSIS TECHNICIAN OPENING NOTE, RECEIVED PATIENT IN BED CONFUSED. A/O X 1, NO S/S OF DISCOMFORT OR PAIN, WITH NO SOB. PATIENT ON O2 3L VIA NASAL CANULA O2 STAT IS 98. ON TELE MONITOR WITH SINUS RHTYM OF 72. IV FLUID 1/2 NS INFUSING AT 75ML/HR. NO S/S OF INFILTRATION. CHIN CATHETER NOTES, INTACT AND DRAINING BY GRAVITY, YELLOW COLOR URINE. G TUBE FEEDING INFUSING JEVITY AT 75ML/HR.PATIENT REMAINS IN COVID ISOLATION, PCR RESULTS IS PENDING, ISOLATION PRECAUTIONS TAKEN, ALL NEEDS ATTENDED. BED IN LOW POSITION, LOCKED, CALL LIGHT WITHIN REACH. V/S STABLE. CONTINUE TO MONITOR.
[2021-11-05] MEDS: DONEPEZIL 5 MG TABLET GT SCH (21:08)
[2021-11-06] VITALS: BP 108/53
[2021-11-06] MEDS: CEFEPIME 1 GM in IV D5W 50 ML IV SCH ×2 (00:03→08:17)
[2021-11-06 04:00] VITALS: BP 109/75
[2021-11-06] MEDS: POLYVINYL ALCOHOL 15 ML BOTTLE OP SCH ×2 (05:20→12:43)
--- NOTE | 2021-11-06 06:44 | NUR ---
JBOSS DEVELOPER CLOSING NOTE RECEIVED PATIENT IN BED CONFUSED. A/O X 1, NO S/S OF DISCOMFORT OR PAIN, WITH NO SOB. PATIENT ON O2 3L VIA NASAL CANULA O2 STAT IS 99. ON TELE MONITOR WITH SINUS RHTYM OF 77. GAURAV MIDLINE PATENT AND FLUSHED. NO S/S OF INFILTRATION. SOFT BILATERAL RESTRAINTS IN PLACE WITH NO SIGNS OF IMPROPER CIRCULATION. CHIN CATHETER NOTED, INTACT AND DRAINING BY GRAVITY, YELLOW COLOR URINE. G TUBE FEEDING STOPPED ORDERED AT @0500. BED IN LOW POSITION, LOCKED, CALL LIGHT WITHIN REACH. V/S STABLE. WILL ENDORSE TO ONCOMING NURSE.
--- NOTE | 2021-11-06 07:35 | NUR ---
RN OPENING NOTES RECEIVED PT ON BED RESTING, EASY TO AROUSE. WITH O2 @2LPM VIA N/C SATURATION @ 95%, NO SOB NOTED, BREATHING EVEN AND UNLABORED. NO S/SX OF PAIN OR DISCOMFORT. WITH G-TUBE INTACT AND PATENT, WITH GTF OF JEVITY 1.2 @ 75ML/HR. WITH CONDOM CATHETER INTACT, DRAINING CLEAR YELLOW URINE TO DRAINAGE BAG. GAURAV ML #18G INTACT AND PATENT WITH 1/2 NS @75ML/HR RUNNING. SOFT WRIST RESTRAINT IN PLACE ORDERED. SAFETY MEASURES IN PLACE. BED LOCKED AND IN LOWEST POSITION, SR UP X2, CALL LIGHT PLACED WITHIN EASY REACH. WILL CONTINUE TO MONITOR.
[2021-11-06 07:39] LABS: CALCIUM, SERUM 8.2 mg/dL (8.5-10.1); CREATININE 0.6 mg/dL (0.6-1.3); POTASSIUM 3.6 mmol/L (3.5-5.1)
[2021-11-06 08:00] VITALS: BP 107/64
[2021-11-06] MEDS: OLANZAPINE 2.5 MG TABLET GT SCH (08:13)
[2021-11-06] MEDS: MULTIVITAMINS,THERAGRAN 1 UDTAB TABLET PO SCH (08:13)
[2021-11-06] MEDS: VALPROIC ACID 250 MG/5 ML UDC GT SCH (08:13)
[2021-11-06] MEDS: FERROUS SULFATE (325 MG) 325 MG/TAB TABLET GT SCH (08:13)
[2021-11-06] MEDS: ASCORBIC ACID 500 MG TABLET GT SCH (08:14)
[2021-11-06] MEDS: PROSOURCE / PROSTAT (PYXIS) 30 ML UDC GT SCH (08:16)
[2021-11-06] MEDS ORDERED: PANTOPRAZOLE 40 MG/PACK PACK GT SCH (09:00)
[2021-11-06 12:00] VITALS: BP 107/64
--- NOTE | 2021-11-06 12:55 | NUR ---
per [facility] covid negative.
--- NOTE | 2021-11-06 13:30 | NUR ---
NEW CLIENT BANKING SERVICES CLERK NOTES PATIENT TRANSFERRED BACK TO [facility], PICKED-UP BY [facility]. PT STABLE, V/S TAKEN, STABLE AND RECORDED. IV ACCESS GAURAV ML REMOVED, NO BLEEDING NOTED, PRESSURE DRESSING APPLIED. CONDOM CATHETER ALSO REMOVED, NOTED WITH 200 ML CLEAR YELLOW URINE OUTPUT FROM DRAINAGE BAG. BODY ASSESSMENT DONE, NOTED WITH SACRAL AREA PRESSURE ULCER, RIGHT GLUTEAL FOLDS REDNESS AND LEFT HEEL DTI, TREATMENT DONE, PHOTOS TAKEN, PLACED IN CHART. WITH G-TUBE PATENT AND INTACT, G-TUBE SITE CLEANSED WITH NS, APPLIED CLEAN AND DRY DRESSING. REPORT GIVEN TO [facility] C/O CIPRIANO CAMPA. PT LEFT UNIT @1327 VIA GURNEY IN STABLE CONDITION TRANSPORTED BY AMBULANCE. CN AWARE OF DISCHARGE.
== END 2021-11-06 14:40 | DRG 189 ==
LOC: ER 13:55 → TELE1 16:13 → MEDSG1 11-06 10:05
PROVIDERS: ADMIT Nurse Practitioner Acute Care; ATTEND Internal Medicine
PROC: 05H633Z Insertion of Infusion Device into Left Subclavian Vein, Percutaneous Approach (ICD-10-PCS; principal; 2021-11-05)
PROC: B547ZZA Ultrasonography of Left Subclavian Vein, Guidance (ICD-10-PCS; 2021-11-05)
DX: J96.01 Acute respiratory failure with hypoxia (principal); E43 Unspecified severe protein-calorie malnutrition; G93.41 Metabolic encephalopathy; E87.0 Hyperosmolality and hypernatremia; D68.69 Other thrombophilia; G40.909 Epilepsy, unspecified, not intractable, without status epilepticus; R13.10 Dysphagia, unspecified; G20 Parkinson's disease; Z20.822 Contact with and (suspected) exposure to COVID-19; Z93.1 Gastrostomy status; F02.80 Dementia in other diseases classified elsewhere, unspecified severity, without behavioral disturbance, psychotic disturbance, mood disturbance, and anxiety; Z73.6 Limitation of activities due to disability; M62.50 Muscle wasting and atrophy, not elsewhere classified, unspecified site; F20.9 Schizophrenia, unspecified; E86.1 Hypovolemia; Z68.20 Body mass index [BMI] 20.0-20.9, adult; L89.626 Pressure-induced deep tissue damage of left heel; L89.156 Pressure-induced deep tissue damage of sacral region; L89.316 Pressure-induced deep tissue damage of right buttock; T17.990A Other foreign object in respiratory tract, part unspecified in causing asphyxiation, initial encounter; X58.XXXA Exposure to other specified factors, initial encounter; Y93.9 Activity, unspecified; Y92.129 Unspecified place in nursing home as the place of occurrence of the external cause; F32.9 Major depressive disorder, single episode, unspecified; F29 Unspecified psychosis not due to a substance or known physiological condition
CPT/HCPCS: 36415; 71045-TC; 80048-TC; 80202-TC; 81001; 83605-TC; 83735-TC; 83880; 84100-TC; 84484-TC; 85025-TC; 85378-TC; 87040-TC; 87081-TC; 87086-TC; A4349; C9113; C9803; G0378; J0692; J1650; J3370; J3490; J7030; J7050; J7060; Q9967; U0003

== ENCOUNTER 2022-01-04 17:25 | Inpatient (IN) | payer MEDICARE, OTHER ==
[~2022-01-04] VITALS: Ht 177.8 cm; Wt 56.2 kg
[~2022-01-04 17:25] MED LIST changes: -PIPE3.379 IV; -VANC750P13 IV
--- NOTE | 2022-01-04 17:30 | NUR ---
TO ER BED 8, BIBRA 60 FROM [facility] C/O FEVER X 3 DAYS AND POSSIBLE INFECTED G TUBE. TYLENOL 650MG GIVEN 30 MINS METHODOLOGIST, AFEBRILE 98.4 UPON ARRIVAL, AAOX1, BREATHING EVEN AND NON LABORED, CONNECTED TO MONITOR, AWAITING MD ORDERS
--- NOTE | 2022-01-04 17:40 | NUR ---
SALINE LOCK ESTABLISHED RIGHT FOREARM 20G AND BLOOD DRAWN
[2022-01-04] MEDS ORDERED: IV NS 0.9% 1,000 ML BAG IV ONE ×2 (18:00→20:00)
--- NOTE | 2022-01-04 18:00 | NUR ---
COVID SWAB DONE AND SENT TO LAB
--- NOTE | 2022-01-04 18:07 | NUR ---
URINE COLLECTED AND SENT TO LAB
[2022-01-04 18:30] LABS: BASOPHILS % (AUTO) 0.3 % (0.0-2.0); HEMATOCRIT 46 % (39-51); HEMOGLOBIN 15.1 g/dL (13.5-17.5); LYMPHOCYTES # (AUTO) 2.3 K/uL (0.8-4.8); LYMPHOCYTES % (AUTO) 32.3 % (20.0-44.0); MEAN CORPUSCULAR HGB CONC 33 g/dl (31.0-36.0); MEAN CORPUSCULAR VOLUME 98 fL (80-96); MONOCYTES # (AUTO) 0.4 K/uL (0.1-1.30); NEUTROPHILS # (AUTO) 4.3 K/uL (1.8-8.9); NEUTROPHILS % (AUTO) 60.4 % (43.0-81.0); PLATELET COUNT (AUTO) 222 K/uL (150-450); RED BLOOD CELL COUNT(AUTO) 4.73 MIL/uL (4.5-6.0); WHITE BLOOD COUNT (AUTO) 7.2 K/uL (4.3-11.0)
--- NOTE | 2022-01-04 18:35 | NUR ---
SILVICULTURIST AT BEDSIDE
[2022-01-04 18:48] LABS: BILIRUBIN,URINE NEGATIVE (NEGATIVE); COLOR,URINE YELLOW (YELLOW); LEUKOCYTE ESTERASE ,URINE NEGATIVE (NEGATIVE); NITRITE, URINE NEGATIVE (NEGATIVE); PH,URINE 6.5 (5.0-8.0); PROTEIN,URINE NEGATIVE (NEGATIVE); UGLUCOSE NEGATIVE (NEGATIVE)
[2022-01-04 18:52] LABS: CALCIUM, SERUM 10.6 mg/dL (8.5-10.1); CARBON DIOXIDE 30 mmol/L (21-32); CHLORIDE 113 mmol/L (98-107); CREATININE 1.1 mg/dL (0.6-1.3); GLUCOSE 141 mg/dL (74-106); UREA NITROGEN, BLOOD 41 mg/dL (7-18)
[2022-01-04 18:55] LABS: SODIUM SERUM 159 mmol/L (136-145)
[2022-01-04 18:59] LABS: RBC,URINE 0-2 /HPF (0-2); WBC,URINE 0-2 /HPF (0-3)
[2022-01-04 19:00] LABS: BACTERIA,URINE RARE /HPF (None Seen); MUCUS,URINE Moderate /LPF (None Seen); SQUAMOUS EPITHELIAL CELL,UR 0-2 /HPF (None Seen)
[2022-01-04 19:00] LABS: ALANINE AMINOTRANSFERASE 72 U/L (12-78); ALBUMIN 3.8 g/dL (3.4-5.0); ALKALINE PHOSPHATASE 102 U/L (46-116); ASPARTATE AMINOTRANSFERASE 32 U/L (15-37); BILIRUBIN,DIRECT 0.1 mg/dL (0.0-0.2); BILIRUBIN,TOTAL 0.3 mg/dL (0.2-1.0); TOTAL PROTEIN, SERUM 8.4 g/dL (6.4-8.2)
[2022-01-04] MEDS ORDERED: PIPERACILLIN /TAZOBACTAM 3.375 G VIAL IV ONE ×2 (19:44→23:58)
[2022-01-04] MEDS ORDERED: VANCOMYCIN 1 GM VIAL ONE (19:44)
--- NOTE | 2022-01-04 19:47 | NUR ---
CALLED [facility] PAGED DR CONTRERAS
[2022-01-04] MEDS ORDERED: OLANZAPINE 10 MG VIAL IM ONE ×2 (19:51→20:00)
[2022-01-04] MEDS ORDERED: VANCOMYCIN 1 GM in IV D5W 250 ML IV ONE (20:00)
[2022-01-04] MEDS ORDERED: PIPERACILLIN /TAZOBACTAM 3.375 G in IV D5W 50 ML IV ONE (20:00)
--- NOTE | 2022-01-04 20:35 | NUR ---
PT TRANSPORTED TO CT SCAN VIA [facility]
--- NOTE | 2022-01-04 20:45 | NUR ---
PT RETURNED FROM CT SCAN. PT HOOKED BACK UP TO MONITOR AND ALL V/S STABLE.
--- NOTE | 2022-01-04 22:23 | NUR ---
tele [phone]
--- NOTE | 2022-01-04 23:06 | NUR ---
REPORT GIVEN TO MAXIMINO FOR CUBA
--- NOTE | 2022-01-04 23:25 | NUR ---
PT TRANSPORTED TO ROOM 118 ON TRANSFORMER SHOP SUPERVISOR PER ACLS PROTOCOL WITHOUT INCIDENT.
[2022-01-04] MEDS ORDERED: LORAZEPAM 1 MG TABLET PO PRN (23:30)
[2022-01-04] MEDS ORDERED: HYDROCODONE/APAP 5/325MG TABLET PO PRN (23:30)
[2022-01-04] MEDS ORDERED: MAG HYDROX/AL HYDROX/SIMETH 30 ML UDC PO PRN (23:30)
[2022-01-04] MEDS ORDERED: MAGNESIUM HYDROXIDE 30 ML UDC PO PRN (23:30)
[2022-01-04] MEDS ORDERED: ONDANSETRON HCL/PF 4 MG/2 ML VIAL IVP PRN (23:30)
[2022-01-04] MEDS ORDERED: Z GUARD REMEDY 4 OZ OINT TP PRN (23:30)
[2022-01-04] MEDS ORDERED: ACETAMINOPHEN 325 MG TABLET PO PRN (23:30)
[2022-01-04] MEDS ORDERED: DEXTROSE 50%-WATER 50 ML DISP.SYRIN IV PRN (23:30)
--- NOTE | 2022-01-04 23:30 | NUR ---
POT ROOM SUPERVISOR NOTE RECEIVED PATIENT VIA GURNEY. TOLERATING ROOM AIR. RESPIRATIONS ARE EVEN AND UNLABORED. NO S/S SOB NOTED. NO C/O PAIN AT THIS TIME. NO DISTRESS. IV ACCESS IN RFA#20 PATENT AND SALINE LOCKED. TELE MONITOR APPLIED, SINUS RHYTHM. GTUBE PRESENT, NO RESIDUAL, FLUSHED WITH NO RESISTANCE. FRAME MAKER OBTAINED VITALS AND COMPLETED BELONGING LIST, INITIAL ASSESSMENT DONE, SKIN ASSESSSMENT COMPLETED AND PHOTOS TAKEN AND PLACED, IN CHART. BED IS LOW AND LOCKED, HOB ELEVTAAED IN SEMI FOWLERS, SIDE RAILS UP X2, CALL LIGHT WITHIN REACH. ALARMS SET AND SAFETY PRECAUTIONS IN PLACE.
[2022-01-05] VITALS (7 sets, daily range): BP systolic 100–136; BP diastolic 57–83
[2022-01-05] MEDS: ENOXAPARIN SODIUM 40 MG/0.4 ML DISP.SYRIN SQ SCH ×2 (00:04→20:26)
[2022-01-05] MEDS: IV 1/2NS 1000 ML 1,000 ML IV PRN ×2 (00:04→13:27)
[2022-01-05] MEDS: BLOOD SUGAR DIAGNOSTIC 1 EACH STRIP IN SCH ×4 (00:05→17:05)
[2022-01-05] MEDS: JEVITY 1.2 CAL 1,000 ML BOTTLE GT PRN ×2 (01:48→13:54)
[2022-01-05] MEDS ORDERED: ZOSYN IVPB 3.375 G in IV D5W 50ml IV ONE (02:00)
[2022-01-05] MEDS: INSULIN REGULAR, HUMAN 100 UNIT/ML 3 ML VIAL SQ PRN (06:15)
--- NOTE | 2022-01-05 07:20 | NUR ---
RN OPENING NOTES RECEIVED PATIENT IN BED, AWAKE,ALERT/ORIENTED X1-2, CONFUSED. BREATHING EVEN AND UNLABORED. PATIENT ON ROOM AIR SATTING AT 98%, NO SOB NOTED OR ANY ACUTE DISTRESS NOTED. WITH IV ACCESS ON RIGHT FOREARM G#20 INFUSING 1/2 NS AT 75 CC/HR. NO SIGNS OF INFILTRATIONS. GT FEEDING RUNNING AT 75 CC/HR, TOLERATING WELL. ALL APPLICABLE ISOLATION PRECAUTIONS IN PLACE. ALL SAFETY MEASURES IN PLACE: HOB ELEVATED, BED LOCKED AND IN LOWEST POSITION WITH SIDERAILS UP. BILATERAL SOFT WRIST RESTRAINTS PLACED FOR SAFETY. CALL LIGHT WITHIN REACH. WILL CONTINUE TO MONITOR PATIENT ACCORDINGLY.
--- NOTE | 2022-01-05 07:35 | NUR ---
RN CLOSING NOTE RESTING IN BED. ROOM AIR. NO PAIN RFA#20 1/2 NS @75. TELE IS SINUS RHYTHM. GTUBE RUNNING [employer] WebsiteITY @75. BILATERAL SOFT WRIST RESTRAINTS APPLIED. BED REMAINS LOW AND LOCKED, HOB ELEVATED IN SEMI FOWLERS, SIDE RAILS UP X2, CALL LIGHT WITHIN REACH. ALARMS SET AND SAFETY PRECAUTIONS IN PLACE. WILL ENDORSE TO ONCOMING SHIFT.
[2022-01-05 07:58] LABS: BASOPHILS % (AUTO) 0.4 % (0.0-2.0); EOSINOPHILS % (AUTO) 2.5 % (0.0-6.0); HEMATOCRIT 37 % (39-51); HEMOGLOBIN 12.5 g/dL (13.5-17.5); LYMPHOCYTES # (AUTO) 1.1 K/uL (0.8-4.8); LYMPHOCYTES % (AUTO) 16.7 % (20.0-44.0); MEAN CORPUSCULAR HGB CONC 34 g/dl (31.0-36.0); MEAN CORPUSCULAR VOLUME 96 fL (80-96); MONOCYTES # (AUTO) 0.3 K/uL (0.1-1.30); MONOCYTES % (AUTO) 4.6 % (2.0-12.0); NEUTROPHILS # (AUTO) 5.1 K/uL (1.8-8.9); NEUTROPHILS % (AUTO) 75.8 % (43.0-81.0); PLATELET COUNT (AUTO) 155 K/uL (150-450); RED BLOOD CELL COUNT(AUTO) 3.89 MIL/uL (4.5-6.0); WHITE BLOOD COUNT (AUTO) 6.8 K/uL (4.3-11.0)
[2022-01-05 08:32] LABS: CALCIUM, SERUM 9.2 mg/dL (8.5-10.1); MAGNESIUM 2.4 mg/dL (1.8-2.4); PHOSPHORUS 2.5 mg/dL (2.5-4.9); POTASSIUM 3.4 mmol/L (3.5-5.1)
[2022-01-05] MEDS: ZOSYN IVPB 4.5 G in IV D5W 50ml IV SCH ×3 (08:37→19:35)
[2022-01-05] MEDS: FERROUS SULFATE (325 MG) 325 MG/TAB TABLET GT SCH (08:38)
[2022-01-05] MEDS: PANTOPRAZOLE 40 MG TABLET.DR PO SCH (08:38)
[2022-01-05] MEDS: VALPROIC ACID 250 MG/5 ML UDC GT SCH ×2 (08:38→20:24)
[2022-01-05] MEDS: OLANZAPINE 2.5 MG TABLET GT SCH ×2 (08:38→20:24)
[2022-01-05] MEDS ORDERED: POTASSIUM CHLORIDE 20 MEQ TAB.PRT.SR PO SCH (11:00)
--- NOTE | 2022-01-05 19:30 | NUR ---
SAND WHEELER OPENING RECEIVED PATIENT IN BED WATCHING TELEVISION, PATIENT CONFUSED. BILATERAL SOFT WRIST RESTRAINTS NOTED IN PLACE. NO S/S OF APPARENT DISTRESS ON ROOM AIR. NOT EXHIBITING PAIN VIA FLACC. 1/2 NS WAS RUNNING @75 ML/HR AT THIS TIME. NOTED TO HAVE G-TUBE RUNNING JEVITY @75CC/HR. TELE MONITOR READING SR 81 WITH PVC's. SAFETY IN PLACE WILL CONTINUE WITH PATIENT CARE PLAN.
--- NOTE | 2022-01-05 19:37 | NUR ---
RN CLOSING NOTES PATIENT REMAINS IN STABLE CONDITION THROUGHOUT. BREATHING EVEN AND UNLABORED. NO SOB OR ANY ACUTE DISTRESS NOTED.PATIENT REMAINS IN ROOM AIR, TOLERATING WELL. IV ACCESS ON RIGHT FOREARM, INFUSING 1/2 NS AT 75 ML/HR. NO SIGNS OF INFILTRATIONS. GT FEEDING JEVITY 1.2 RUNNING AT 75 CC/HR, TOLERATING WELL. ALL DUE MEDS GIVEN ORDERED. KEPT PATIENT CLEAN, DRY AND COMFORTABLE. ALL NEEDS ATTENDED. BILATERAL SOFT WRISTS RESTRAINTS MAINTAINED. ALL APPLICABLE ISOLATION PRECAUTIONS IN PLACE. ALL SAFETY MEASURES MAINTAINED. BED LOCKED AND IN LOWEST POSITION WITH SIDERAILS UP. CALL LIGHT WITHIN REACH. ENDORSED TO ONCOMING NURSE FOR CUBA.
[2022-01-05] MEDS ORDERED: VANCOMYCIN 1.25 GM in IV D5W 250 ML IV SCH (20:00)
[2022-01-05] MEDS: DONEPEZIL 5 MG TABLET PO SCH (22:15)
[2022-01-06] VITALS: BP 136/82
[2022-01-06] MEDS: INSULIN REGULAR, HUMAN 100 UNIT/ML 3 ML VIAL SQ PRN ×2 (00:54→06:05)
--- NOTE | 2022-01-06 00:54 | NUR ---
FORKLIFT TRUCK MECHANIC NOTE- NON-ADMIN INSULIN BLOOD SUGAR 104. NO COVERAGE NEEDED.
[2022-01-06] MEDS: ZOSYN IVPB 4.5 G in IV D5W 50ml IV SCH ×2 (02:19→08:07)
[2022-01-06 04:00] VITALS: BP 126/64
[2022-01-06] MEDS: BLOOD SUGAR DIAGNOSTIC 1 EACH STRIP IN SCH ×4 (06:04→17:55)
--- NOTE | 2022-01-06 06:05 | NUR ---
BLOOD SUGAR 107. NO COVERAGE NEEDED.
[2022-01-06 07:16] LABS: BASOPHILS % (AUTO) 0.5 % (0.0-2.0); EOSINOPHILS % (AUTO) 2.8 % (0.0-6.0); HEMATOCRIT 39 % (39-51); HEMOGLOBIN 12.8 g/dL (13.5-17.5); LYMPHOCYTES # (AUTO) 1.3 K/uL (0.8-4.8); LYMPHOCYTES % (AUTO) 19.5 % (20.0-44.0); MEAN CORPUSCULAR HGB CONC 33 g/dl (31.0-36.0); MEAN CORPUSCULAR VOLUME 96 fL (80-96); MONOCYTES # (AUTO) 0.3 K/uL (0.1-1.30); MONOCYTES % (AUTO) 4.9 % (2.0-12.0); NEUTROPHILS % (AUTO) 72.3 % (43.0-81.0); PLATELET COUNT (AUTO) 158 K/uL (150-450); RED BLOOD CELL COUNT(AUTO) 4.01 MIL/uL (4.5-6.0); WHITE BLOOD COUNT (AUTO) 6.9 K/uL (4.3-11.0)
--- NOTE | 2022-01-06 07:20 | NUR ---
RN OPENING NOTES RECEIVED PATIENT IN BED, AWAKE,ALERT/ORIENTED X1-2, CONFUSED. BREATHING EVEN AND UNLABORED. PATIENT ON ROOM AIR TOLERATING WELL. NO SOB NOTED OR ANY ACUTE DISTRESS NOTED. WITH IV ACCESS ON RIGHT FOREARM G#20 INFUSING 1/2 NS AT 75 CC/HR. NO SIGNS OF INFILTRATIONS. GT FEEDING JEVITY 1.2 RUNNING AT 75 CC/HR, TOLERATING WELL. ALL APPLICABLE ISOLATION PRECAUTIONS IN PLACE. ALL SAFETY MEASURES IN PLACE: HOB ELEVATED, BED LOCKED AND IN LOWEST POSITION WITH SIDERAILS UP. BILATERAL SOFT WRIST RESTRAINTS PLACED FOR SAFETY, RELEASED FOR CIRCULATION. CALL LIGHT WITHIN REACH. WILL CONTINUE TO MONITOR PATIENT ACCORDINGLY.
--- NOTE | 2022-01-06 07:26 | NUR ---
REMARKETING REP CLOSING NOTE PATIENT IN BED WITH EYES CLOSED, EASY TO AROUSE. STILL CONFUSED. BILATERAL SOFT WRIST RESTRAINTS STILL IN PLACE-- RENEWED. NO S/S OF APPARENT DISTRESS ON ROOM AIR. TELE MONITOR READING SR-VTACH(DURING REPOSITIONS AND CHANGE). NO C/O PAIN AT THIS TIME. IV 1/2 NS RUNNING AT 75 ML/HR THIS TIME. SAFETY KEPT IN PLACE THE WHOLE SHIFT. ALL NEEDS ATTENDED. ALL SCHEDULED MEDICATIONS ADMINISTERED. ISOLATION STRICTLY FOLLOWED. WILL ENDORSE TO MORNING SHIFT RN FOR CONTINUITY OF CARE.
[2022-01-06 07:33] LABS: CALCIUM, SERUM 9.4 mg/dL (8.5-10.1); CREATININE 0.9 mg/dL (0.6-1.3); POTASSIUM 4.4 mmol/L (3.5-5.1)
[2022-01-06 08:00] VITALS: BP 118/78
[2022-01-06] MEDS: IV 1/2NS 1000 ML 1,000 ML IV PRN (08:07)
[2022-01-06] MEDS: OLANZAPINE 2.5 MG TABLET GT SCH ×2 (08:07→20:53)
[2022-01-06] MEDS: VALPROIC ACID 250 MG/5 ML UDC GT SCH ×2 (08:07→20:53)
[2022-01-06] MEDS: FERROUS SULFATE (325 MG) 325 MG/TAB TABLET GT SCH (08:07)
[2022-01-06] MEDS: PANTOPRAZOLE 40 MG TABLET.DR PO SCH (08:07)
--- NOTE | 2022-01-06 11:31 | NUR ---
WOUND CARE CONSULT: REVIEWED CHART, NURSING DOCUMENTATION AND PHOTOS WHICH INDICATE G TUBE SITE DISCOLORATION AND LEFT HEEL WOUND, PRESENT ON ADMISSION. DR TRENT AND DR CAMACHO NOTIFIED OF SURGICAL AND DPM CONSULT REQUESTS. RECOMMENDATIONS MADE FOR SKIN PROTECTION. DISCUSSED WITH NURSING STAFF. MD IN AGREEMENT WITH PLAN OF CARE.
[2022-01-06 12:00] VITALS: BP 112/67
[2022-01-06] MEDS: VANCOMYCIN 0.75 GM in IV D5W 250 ML IV SCH (13:12)
[2022-01-06] MEDS: JEVITY 1.2 CAL 1,000 ML BOTTLE GT PRN (13:23)
--- NOTE | 2022-01-06 14:36 | NUR ---
RN NOTES PER PHARMACY SPOKE TO LIANA HANSENSYLa Nena 4.5G IN [place], MED WAS DISCONTINUED.
[2022-01-06 16:00] VITALS: BP 106/69
[2022-01-06] MEDS: ZOSYN IVPB 3.375 G in IV D5W 50ml IV SCH ×2 (17:30→23:46)
--- NOTE | 2022-01-06 18:33 | NUR ---
RN CLOSING NOTES PATIENT REMAINS IN STABLE CONDITION THROUGHOUT SHIFT. PATIENT SLEEPING IN BED. BREATHING EVEN AND UNLABORED. PATIENT ON ROOM AIR TOLERATING WELL. NO SOB NOTED OR ANY ACUTE DISTRESS NOTED. WITH IV ACCESS ON RIGHT FOREARM G#20 INFUSING 1/2 NS AT 75 CC/HR. NO SIGNS OF INFILTRATIONS. GT FEEDING JEVITY 1.2 RUNNING AT 75 CC/HR, TOLERATING WELL. ALL DUE MEDS GIVEN ORDERED. WOUND CARE RENDERED ORDERED. KEPT PATIENT CLEAN, DRY AND COMFORTABLE. ALL NEEDS ATTENDED. ALL APPLICABLE ISOLATION PRECAUTIONS IN PLACE. ALL SAFETY MEASURES IN PLACE: HOB ELEVATED, BED LOCKED AND IN LOWEST POSITION WITH SIDERAILS UP. BILATERAL SOFT WRIST RESTRAINTS MAINTAINED FOR SAFETY. CALL LIGHT WITHIN REACH. WILL ENDORSE TO ONCOMING NURSE FOR CONTINUITY OF CARE.
--- NOTE | 2022-01-06 19:31 | NUR ---
RN OPENING NOTE PATIENT IN BED, AWAKE. PATIENT A/O X 1 AT THIS TIME AND CONFUSED. PATIENT ON RA TOLERATING WELL NO RESPIRATORY DISTRESS. PATIENT'S TELE MONITOR READS SR 80 BPM. PATIENT ON TF JEVITY 1.2 @ 75 ML/HR, TOLERATING WELL NO RESIDUAL. RFA 20G RUNNING 1/2 NS @75 ML/HR, INFUSING WELL. BILATERAL SOFT WRIST RESTRAINTS ON, PATIENT MILDLY COMBATIVE AND YELLING. SAFETY MEASURES IN PLACE: BED LOCKED AND IN LOWEST POSITION, CALL LIGHT WITHIN REACH, SIDE RAILS UP. HOB ELEVATED. WILL CONTINUE TO MONITOR CLOSELY.
[2022-01-06 20:00] VITALS: BP 116/67
[2022-01-06] MEDS: ENOXAPARIN SODIUM 40 MG/0.4 ML DISP.SYRIN SQ SCH (20:55)
[2022-01-06] MEDS: DONEPEZIL 5 MG TABLET PO SCH (21:00)
[2022-01-07] VITALS: BP 124/71
--- NOTE | 2022-01-07 00:16 | NUR ---
RN NOTE BS 97 MG/DL, NO COVERAGE GIVEN PT ON CONTINUOUS TF, WILL MONITOR FOR HYPO/HYPERGLYCEMIA.
[2022-01-07] MEDS: VANCOMYCIN 0.75 GM in IV D5W 250 ML IV SCH ×2 (00:39→13:41)
[2022-01-07] MEDS: IV 1/2NS 1000 ML 1,000 ML IV PRN ×2 (00:39→17:57)
[2022-01-07 04:00] VITALS: BP 103/77
[2022-01-07] MEDS: ZOSYN IVPB 3.375 G in IV D5W 50ml IV SCH ×4 (05:22→23:25)
[2022-01-07] MEDS: BLOOD SUGAR DIAGNOSTIC 1 EACH STRIP IN SCH ×5 (05:37→23:50)
--- NOTE | 2022-01-07 07:00 | NUR ---
RN CLOSING NOTE PATIENT IN BED, AWAKE. PATIENT A/O X 1 AT THIS TIME AND CONFUSED. PATIENT ON RA TOLERATING WELL NO RESPIRATORY DISTRESS. PATIENT'S TELE MONITOR READS SR 77 BPM. PATIENT ON TF JEVITY 1.2 @ 75 ML/HR, TOLERATING WELL NO RESIDUAL. RFA 20G RUNNING 1/2 NS @75 ML/HR, INFUSING WELL. BILATERAL SOFT WRIST RESTRAINTS ON, PATIENT STILL REMAINS COMBATIVE, YELLING AND KICKING WHEN PROVIDING CARE. BS 130 MG DL AT 0600 NO COVERAGE GIVEN. SAFETY MEASURES IN PLACE: BED LOCKED AND IN LOWEST POSITION, CALL LIGHT WITHIN REACH, SIDE RAILS UP. HOB ELEVATED. ALL NEEDS MET AND ATTENDED, ALL ORDERS CARRIED OUT. WILL ENDORSE TO DAY SHIFT NURSE FOR CUBA.
--- NOTE | 2022-01-07 07:55 | NUR ---
PRODUCTION TEAM ADVISOR OPENING NOTE Patient in bed, asleep. A/O x 1, confused. On room air, breathing evenly and unlabored. No SOB or s/s of distress noted. IV access on RFA #20G infusing 1/2 NS at 75 ml/hr. G-tube in place running Jevity 1.2 @ 75 ml/hr, patietn tolerating well. On tele monitoring showing SR, HR on the 80's. Safety precautions in place: bed in low, locked position; siderails up x 2; call light within reach. Will continue to monitor.
[2022-01-07 08:00] VITALS: BP 124/73
[2022-01-07] MEDS: OLANZAPINE 2.5 MG TABLET GT SCH ×2 (09:47→21:35)
[2022-01-07] MEDS: FERROUS SULFATE (325 MG) 325 MG/TAB TABLET GT SCH (09:47)
[2022-01-07] MEDS: VALPROIC ACID 250 MG/5 ML UDC GT SCH ×2 (09:47→21:35)
[2022-01-07] MEDS: PANTOPRAZOLE 40 MG TABLET.DR PO SCH (09:47)
[2022-01-07 12:00] VITALS: BP 95/54
[2022-01-07 12:47] LABS: BASOPHILS % (AUTO) 0.3 % (0.0-2.0); EOSINOPHILS % (AUTO) 3.3 % (0.0-6.0); HEMATOCRIT 38 % (39-51); HEMOGLOBIN 12.5 g/dL (13.5-17.5); LYMPHOCYTES # (AUTO) 1.2 K/uL (0.8-4.8); LYMPHOCYTES % (AUTO) 25.2 % (20.0-44.0); MEAN CORPUSCULAR HGB CONC 33 g/dl (31.0-36.0); MEAN CORPUSCULAR VOLUME 96 fL (80-96); MONOCYTES # (AUTO) 0.5 K/uL (0.1-1.30); MONOCYTES % (AUTO) 9.4 % (2.0-12.0); NEUTROPHILS % (AUTO) 61.8 % (43.0-81.0); PLATELET COUNT (AUTO) 144 K/uL (150-450); RED BLOOD CELL COUNT(AUTO) 3.95 MIL/uL (4.5-6.0); WHITE BLOOD COUNT (AUTO) 4.9 K/uL (4.3-11.0)
[2022-01-07] MEDS: INSULIN REGULAR, HUMAN 100 UNIT/ML 3 ML VIAL SQ PRN ×2 (12:53→23:51)
[2022-01-07 13:22] LABS: CALCIUM, SERUM 8.9 mg/dL (8.5-10.1); CREATININE 0.7 mg/dL (0.6-1.3); POTASSIUM 3.8 mmol/L (3.5-5.1)
[2022-01-07 16:00] VITALS: BP 112/61
[2022-01-07] MEDS: JEVITY 1.2 CAL 1,000 ML BOTTLE GT PRN (18:19)
--- NOTE | 2022-01-07 19:01 | NUR ---
SECTION 8 PROPERTY MANAGER CLOSING NOTE Patient in bed, asleep. A/O x 1, confused. Stable on room air, breathing evenly and unlabored. No SOB or s/s of distress noted. IV access on RFA #20G infusing 1/2 NS at 75 ml/hr. G-tube in place running Jevity 1.2 @ 75 ml/hr, patient tolerating well. Water flushing done on G-tube. Patient kept clean and dry. Due meds given. Patient turned and repositioned. On tele monitoring showing SR, HR 70. Bilateral soft restraints on both wrists retained. Safety precautions maintained: bed in low, locked position; siderails up x 2; call light within reach. Will endorse to jet inspector nurse for CUBA.
--- NOTE | 2022-01-07 19:50 | NUR ---
TRANSPLANT IMMUNOLOGIST OPENING NOTE PATIENT AWAKE IN BED WATCHING TV, ALERT/ORIENTED X 1, CONFUSED. NO S/S OF PAIN OR DISCOMFORT NOTED, PT LAYING COMFORTABLY AND VITAL SIGNS WNL. PT STABLE ON RA, NO S/S OF RESPIRATORY DISTRESS OR SOB NOTED, BREATHING EVEN AND UNLABORED. IV ACCESS ON RFA #20G INTACT AND RUNNING 1/2 NS @ 75 ML/HR. GT FEEDING RUNNING JEVITY 1.2 @ 75 ML/HR. BILATERAL WRIST RESTRAINTS IN PLACE. SAFETY MEASURES IN PLACE: CALL LIGHT WITHIN REACH, SIDE RAILS UP X 3, BED LOCKED IN LOW POSITION, BED ALARM ON, HOB ELEVATED. WILL CONTINUE TO MONITOR PATIENT
[2022-01-07 20:00] VITALS: BP 121/70
[2022-01-07] MEDS: DOCUSATE SODIUM LIQ 100 MG/10 ML UDC NG SCH (21:35)
[2022-01-07] MEDS: ENOXAPARIN SODIUM 40 MG/0.4 ML DISP.SYRIN SQ SCH (21:36)
[2022-01-07] MEDS: DONEPEZIL 5 MG TABLET PO SCH (22:42)
[2022-01-08] VITALS: BP 115/59
[2022-01-08] MEDS: VANCOMYCIN 0.75 GM in IV D5W 250 ML IV SCH ×2 (00:28→12:55)
[2022-01-08 04:00] VITALS: BP 130/76
[2022-01-08] MEDS: ZOSYN IVPB 3.375 G in IV D5W 50ml IV SCH ×3 (06:11→17:07)
[2022-01-08] MEDS: BLOOD SUGAR DIAGNOSTIC 1 EACH STRIP IN SCH ×3 (07:00→17:31)
[2022-01-08] MEDS: INSULIN REGULAR, HUMAN 100 UNIT/ML 3 ML VIAL SQ PRN ×2 (07:05→17:31)
--- NOTE | 2022-01-08 07:35 | NUR ---
DISH CARRIER CLOSING NOTE PATIENT SLEEPING IN BED, ALERT/ORIENTED X 1, CONFUSED. NO SIGNIFICANT CHANGES THROUGHOUT SHIFT. PT STABLE ON RA, NO S/S OF RESPIRATORY DISTRESS OR SOB NOTED, BREATHING EVEN AND UNLABORED. IV ACCESS ON RFA #20G INTACT AND RUNNING 1/2 NS @ 75 ML/HR. GT FEEDING RUNNING JEVITY 1.2 @ 75 ML/HR. BILATERAL WRIST RESTRAINTS IN PLACE. PATIENT TURNED Q2H AND MEPIPLEX PLACED IN SACRUM. PATIENT WAS RESTLESS AND AGITATED DURING HYGIENE CARE. SAFETY MEASURES IN PLACE: CALL LIGHT WITHIN REACH, SIDE RAILS UP X 3, BED LOCKED IN LOW POSITION, BED ALARM ON, HOB ELEVATED. ENDORSED TO DAY SHIFT NURSE FOR CONTINUITY OF CARE
--- NOTE | 2022-01-08 07:35 | NUR ---
RN OPENING NOTES Patient seen comfortably lying in bed, breathing even and unlabored, no SOB, no apparent distress noted, no grimacing. Call light left within reach, safety precautions in place, brakes locked, side rails up X 2, will monitor closely for any changes.
[2022-01-08 07:57] LABS: CALCIUM, SERUM 9.9 mg/dL (8.5-10.1); CREATININE 0.8 mg/dL (0.6-1.3); POTASSIUM 4.3 mmol/L (3.5-5.1)
[2022-01-08 08:00] VITALS: BP 107/68
[2022-01-08] MEDS: OLANZAPINE 2.5 MG TABLET GT SCH ×2 (08:12→21:22)
[2022-01-08] MEDS: VALPROIC ACID 250 MG/5 ML UDC GT SCH ×2 (08:12→21:21)
[2022-01-08] MEDS: FERROUS SULFATE (325 MG) 325 MG/TAB TABLET GT SCH (08:13)
[2022-01-08] MEDS: PANTOPRAZOLE 40 MG TABLET.DR PO SCH (08:13)
[2022-01-08] MEDS: JEVITY 1.2 CAL 1,000 ML BOTTLE GT PRN (08:14)
[2022-01-08 10:34] LABS: BILIRUBIN,DIRECT 0.2 mg/dL (0.0-0.2); BILIRUBIN,TOTAL 0.4 mg/dL (0.2-1.0)
--- NOTE | 2022-01-08 10:39 | NUR ---
Received a call from laboratory spoke to Mariya, regarding patients lactic acid which revealed 2.4. Patient seen comfortably lying in bed, no apparent distress noted, afebrile, hospitalist made aware and acknowledged, will monitor closely for any changes.
[2022-01-08 12:00] VITALS: BP 124/70
[2022-01-08] MEDS: IV 1/2NS 1000 ML 1,000 ML IV PRN (13:12)
[2022-01-08 16:00] VITALS: BP 100/57
--- NOTE | 2022-01-08 18:41 | NUR ---
RN CLOSING NOTES Patient lying in bed, alert, oriented X 1, with episodes of forgetfulness and confusion, redirection and reorientation provided. No shortness of breath, respirations even and unlabored, remained afebrile during shift. Gastric tube remained patent, intact and in place during shift, placement verified by auscultation and aspiration of gastric residuals. All due medications given via gtube per MD order, tolerating well. Insulin given per sliding scale as needed per MD order no s/s of hypo or hyperglycemia, no change in level of consciousness, no tremors, tolerating well. Patient has an order for soft wrist restraint for safety, visual check rendered every 15 minutes, patient repositioned frequently, no s/s of circulation impairment noted at this time, skin warm to touch, no pallor or cyanosis noted. Kept clean and dry, call light left within reach, all needs anticipated, aspiration precautions observed at all times, kept head of bed elevated, safety precautions in place, frequent visual checks rendered, brakes locked, side rails up X 2, will endorse to next shift for continuity of care.
--- NOTE | 2022-01-08 19:20 | NUR ---
PROMOTIONS ASSOCIATE OPENING NOTE RECEIVED PATIENT ALERT/ORIENTED X 1, CONFUSED. NO S/S OF PAIN OR DISCOMFORT NOTED. PATIENT ON TELE MONITOR SR. PT STABLE ON RA, NO S/S OF RESPIRATORY DISTRESS OR SOB NOTED, BREATHING EVEN AND UNLABORED. IV ACCESS ON RFA #20G INTACT AND RUNNING 1/2 NS @ 75 ML/HR. GT FEEDING RUNNING JEVITY 1.2 @ 75 ML/HR. BILATERAL WRIST RESTRAINTS IN PLACE. SAFETY MEASURES IN PLACE: CALL LIGHT WITHIN REACH, SIDE RAILS UP X 3, BED LOCKED IN LOW POSITION, BED ALARM ON, HOB ELEVATED. WILL CONTINUE TO MONITOR PATIENT
[2022-01-08 20:00] VITALS: BP 113/68
[2022-01-08] MEDS: DOCUSATE SODIUM LIQ 100 MG/10 ML UDC NG SCH (21:21)
[2022-01-08] MEDS: DONEPEZIL 5 MG TABLET PO SCH (21:22)
[2022-01-08] MEDS: ENOXAPARIN SODIUM 40 MG/0.4 ML DISP.SYRIN SQ SCH (21:23)
[2022-01-09] VITALS: BP 122/67
[2022-01-09] MEDS: ZOSYN IVPB 3.375 G in IV D5W 50ml IV SCH ×2 (00:07→06:15)
[2022-01-09] MEDS: BLOOD SUGAR DIAGNOSTIC 1 EACH STRIP IN SCH ×4 (00:16→17:40)
[2022-01-09] MEDS: JEVITY 1.2 CAL 1,000 ML BOTTLE GT PRN (02:33)
[2022-01-09 04:00] VITALS: BP 112/65
[2022-01-09] MEDS: INSULIN REGULAR, HUMAN 100 UNIT/ML 3 ML VIAL SQ PRN ×2 (06:13→09:15)
--- NOTE | 2022-01-09 06:14 | NUR ---
RN NOTE GS 130 - NO INSULIN PER SLIDING SCALE
--- NOTE | 2022-01-09 06:29 | NUR ---
RN CLOSING NOTE PATIENT REMAINS IN BED, AGITATED AND AGGRESSIVE THROUGHOUT THE NIGHT WHEN CLEANING HIM OR TRYING TO GIVE HIS MEDICATION. ALL MEDICATIONS GIVEN ON TIME, WILL ENDORSE PLAN OF CARE TO AM NURSE.
--- NOTE | 2022-01-09 07:20 | NUR ---
ms rn received on bed, awake,alert,x1,not in any form of distress, patient is so sleepy at this time, on g tube feeding,tolerated well,bilateral soft restrain on for safety,refusing care at this time, will monitor patient.
[2022-01-09 08:00] VITALS: BP 127/76
[2022-01-09] MEDS: VALPROIC ACID 250 MG/5 ML UDC GT SCH (09:05)
[2022-01-09] MEDS: OLANZAPINE 2.5 MG TABLET GT SCH (09:05)
[2022-01-09] MEDS: FERROUS SULFATE (325 MG) 325 MG/TAB TABLET GT SCH (09:06)
[2022-01-09] MEDS: PANTOPRAZOLE 40 MG TABLET.DR PO SCH (09:13)
--- NOTE | 2022-01-09 09:30 | NUR ---
ms rn due meds given,all needs attended.
--- NOTE | 2022-01-09 12:00 | NUR ---
ms rn patient is refusing care, refused to do dressing change.
[2022-01-09 16:00] VITALS: BP 99/63
--- NOTE | 2022-01-09 16:00 | NUR ---
ms rn patioent refused to clean mouth biting toothet,nothing we can do, screaming.
--- NOTE | 2022-01-09 19:05 | NUR ---
ms rn patient transferred to [facility], report given to wilmar sequeira,all needs attended.
== END 2022-01-09 19:15 | DRG 640 ==
LOC: ER 17:37 → TELE1 22:28
PROVIDERS: ATTEND Nurse Practitioner Acute Care
DX: E87.0 Hyperosmolality and hypernatremia (principal); N17.0 Acute kidney failure with tubular necrosis; E43 Unspecified severe protein-calorie malnutrition; G93.41 Metabolic encephalopathy; D68.59 Other primary thrombophilia; R64 Cachexia; Z68.1 Body mass index [BMI] 19.9 or less, adult; R50.9 Fever, unspecified; K56.41 Fecal impaction; Z20.822 Contact with and (suspected) exposure to COVID-19; Z86.16 Personal history of COVID-19; E87.6 Hypokalemia; D71 Functional disorders of polymorphonuclear neutrophils; G20 Parkinson's disease; F02.80 Dementia in other diseases classified elsewhere, unspecified severity, without behavioral disturbance, psychotic disturbance, mood disturbance, and anxiety; F20.9 Schizophrenia, unspecified; Z74.09 Other reduced mobility; F32.A Depression, unspecified; Z93.1 Gastrostomy status; L89.156 Pressure-induced deep tissue damage of sacral region; M62.50 Muscle wasting and atrophy, not elsewhere classified, unspecified site; N20.0 Calculus of kidney; L89.626 Pressure-induced deep tissue damage of left heel; E86.1 Hypovolemia; R13.10 Dysphagia, unspecified
CPT/HCPCS: 36415; 71045-TC; 80048-TC; 80076-TC; 80202-TC; 81001; 82247-TC; 82248-TC; 82962-TC; 83605-TC; 83735-TC; 84100-TC; 84484-TC; 85025-TC; 85730-TC; 87040-TC; 87081-TC; 87086-TC; C9803; G0378; J1650; J1815; J2543; J3370; J3490; J7030; J7060; U0003

== ENCOUNTER 2022-02-10 21:23 | Emergency (ER) | payer MEDICARE, OTHER ==
[~2022-02-10] VITALS: Ht 175.3 cm; Wt 72.6 kg
[~2022-02-10 21:23] MED LIST changes: -LORA-259 PO; -OLAN2.5T3 GT; -VALP250S4 GT
--- NOTE | 2022-02-10 21:30 | NUR ---
CARLOS FROM SNF FOR PULLED OUT GT. PATIENT DEMENTED, BED BOUND AND IN A DIAPER.
[2022-02-10] MEDS ORDERED: DIATR MEGLU/DIATRIZOATE SODIUM 30 ML BOTTLE (GASTROGRAPHIN) ONE (21:37)
--- NOTE | 2022-02-10 21:52 | NUR ---
GTUBE REPLACED, XRAY AT BEDSIDE
--- NOTE | 2022-02-10 23:53 | NUR ---
[facility] ETA 70-90 MINS
--- NOTE | 2022-02-11 00:14 | NUR ---
REPORT GIVEN TO LIZETH WHITEHEAD
--- NOTE | 2022-02-11 00:41 | NUR ---
[facility] AT BED SIDE TO VP PATIENT THE PT
--- NOTE | 2022-02-11 00:46 | NUR ---
PATIENT BEING TRANSFERRED BACK TO [facility] IN STABLE CONDITION.
[2022-02-11 00:47] VITALS: BP 110/66
== END 2022-02-11 00:47 | disposition home or self-care (01) ==
LOC: ER 21:25
DX: K94.23 Gastrostomy malfunction (principal); M15.9 Polyosteoarthritis, unspecified; Z87.39 Personal history of other diseases of the musculoskeletal system and connective tissue; F31.9 Bipolar disorder, unspecified; F20.9 Schizophrenia, unspecified; Z86.69 Personal history of other diseases of the nervous system and sense organs; Z86.61 Personal history of infections of the central nervous system; Z86.2 Personal history of diseases of the blood and blood-forming organs and certain disorders involving the immune mechanism; Z79.1 Long term (current) use of non-steroidal anti-inflammatories (NSAID); Z79.899 Other long term (current) drug therapy
CPT/HCPCS: 43762; 74018; 99284; Q9963

== ENCOUNTER 2023-10-11 11:52 | Emergency (ER) | payer MEDICARE, OTHER ==
[~2023-10-11] VITALS: Ht 170.2 cm; Wt 77.2 kg
[2023-10-11] MEDS ORDERED: DIATR MEGLU/DIATRIZOATE SODIUM 30 ML BOTTLE (GASTROGRAPHIN) ONE (12:23)
[2023-10-11 17:35] VITALS: BP 110/78; TEMP 98; O2SAT 96
== END 2023-10-11 17:37 ==
LOC: ER 12:01
DX: K94.29 Other complications of gastrostomy (principal); F03.90 Unspecified dementia, unspecified severity, without behavioral disturbance, psychotic disturbance, mood disturbance, and anxiety; F31.9 Bipolar disorder, unspecified; F20.9 Schizophrenia, unspecified; Z79.899 Other long term (current) drug therapy; Y83.8 Other surgical procedures as the cause of abnormal reaction of the patient, or of later complication, without mention of misadventure at the time of the procedure
CPT/HCPCS: 99284; 43762; 74018; Q9963

== ENCOUNTER 2023-10-12 13:46 | Emergency (ER) | payer MEDICARE, OTHER ==
[~2023-10-12] VITALS: Ht 170.2 cm; Wt 77.1 kg
[2023-10-12] MEDS ORDERED: DIATR MEGLU/DIATRIZOATE SODIUM 30 ML BOTTLE (GASTROGRAPHIN) ONE (14:29)
[2023-10-12 17:37] VITALS: BP 113/79; TEMP 98.3; O2SAT 96
== END 2023-10-12 17:46 ==
LOC: ER 13:48
DX: K94.23 Gastrostomy malfunction (principal); G20.A1 Parkinson's disease without dyskinesia, without mention of fluctuations; F02.80 Dementia in other diseases classified elsewhere, unspecified severity, without behavioral disturbance, psychotic disturbance, mood disturbance, and anxiety; F31.9 Bipolar disorder, unspecified; F20.9 Schizophrenia, unspecified; Z79.899 Other long term (current) drug therapy
CPT/HCPCS: 99284; 43762; 74018; Q9963